=== PATIENT | male | born 1940 | race Caucasian/White ===

== ENCOUNTER 2017-08-09 10:25 | Inpatient (IN) | payer MEDICARE ==
--- NOTE | 2017-08-09 11:09 | RAD ---
PORTABLE CHEST: History: Chest pain. Comparison: 12-12-16 FINDINGS: Lung show increased interstitial markings which appear stable. No infiltrate or vascular congestion. Heart size is upper normal and stable. IMPRESSION: Chronic appearing interstitial prominence again noted without evidence of acute change. POS: [facility]
[2017-08-09 11:28] LABS: ALT (SGPT) 23 U/L (8-55); AST (SGOT) 20 U/L (5-34); Alkaline Phosphatase 110 U/L (40-150); Anion Gap 11 mmol/L (10-20); BUN (Urea Nitrogen) 20 mg/dL (8.4-25.7); Bilirubin, Total 0.7 mg/dL (0.2-1.2); CK (CPK) 53 U/L (30-200); Calc. Creatinine Clearance 0 mL/min (70-130); Carbon Dioxide 25 mmol/L (23-31); Chloride 108 mmol/L (98-107); Estimated GFR-MDRD 51; Globulin 2.7 g/dL (2.4-3.5); Protein, Total 6.4 g/dL (5.8-8.1)
[2017-08-09 11:32] LABS: Troponin I 0.015 ng/mL (< 0.028)
[2017-08-09 11:49] LABS: #Eosinphils 0.1 thou/uL (0.0-0.7); #Lymphocytes 1.1 thou/uL (1.20-3.40); #Monocytes 0.3 thou/uL (0.11-0.59); #Neutrophils 4.2 thou/uL (1.40-6.50); %Basophils 0.6 % (0.0-1.0); %Eosinophils 1.6 % (0.0-10.0); %Lymphocytes 18.3 % (21.0-51.0); %Monocytes 5.9 % (0.0-10.0); Hematocrit 33.7 % (42.0-52.0); Macrocytosis MODERATE=16-30 cells (100X) (0-5/hpf); Mean Platelet Volume 7.9 fL (7.4-10.4); Polychromasia SLIGHT = 2-3 cells (100X) (0-2/hpf); White Blood Cell (WBC) Count 5.7 thou/uL (4.8-10.8)
[2017-08-09 14:30] LABS: Troponin I 0.047 ng/mL (< 0.028)
--- NOTE | 2017-08-09 15:21 | HP ---
PRIMARY CARE PHYSICIAN: Andriy Robles M.D. REASON FOR ADMISSION: Chest pain and palpitations. HISTORY OF PRESENT ILLNESS: A 76-year-old male with a history of dyslipidemia, anxiety, as well as h istory of hemolytic anemia who presented to emergency room for evaluation and dizziness. For last 4 days, he had two similar episodes of falling. The patient reports that he was resting and all of joel denly he was feeling palpitations, dizziness, shortness of breath, and substernal chest pressure-like sensation with nausea. This morning, episode was around 9:30 a.m. and it was more intense. Patient 's was trying to drive him to the ER, but patient told her that he is going to pass out and that is why she was concerned about it and decided to call paramedics. During that period, patient's wif e checked vitals at home and patient's pulse was 190 and blood pressure was 70 systolic. The patient appeared ashen nicholson color as well as cold. Patient was also having difficulty maintaining conscious ness. When paramedics came to his house, at that time, patient's blood pressure was still low and he was tachycardic. When he arrived to our emergency room, at that time blood pressure improved. As p er paramedics, he had episode of SVT. In the emergency room, he had only sinus tachycardia and low b lood pressure. Patient reports that recently he was having nasal congestion, cough, and he was takin g Mucinex, but he denies any pseudoephedrine. He denies any more caffeinated products. He denies an y complete loss of consciousness. He denies any focal motor or sensory symptoms. When I saw this patient in the emergency room, he was completely comfortable and completely asymptoma tic. At this point, we are admitting this patient in the hospital for further monitoring. REVIEW OF SYSTEMS: The following complete review of systems was negative, unless otherwise mentioned in the HPI or below: Constitutional: Weight loss or gain, ability to conduct usual activities. Skin: Rash, itching. Eyes: Double vision, pain. ENT/Mouth: Nose bleeding, neck stiffness, pain, tenderness. Cardiovascular: Palpitations, dyspnea on exertion, orthopnea. Respiratory: Shortness of breath, wheezing, cough, hemoptysis, fever or night sweats. Gastrointestinal: Poor appetite, abdominal pain, heartburn, nausea, vomiting, constipation, or diarr hea. Genitourinary: Urgency, frequency, dysuria, nocturia. Musculoskeletal: Pain, swelling. Neurologic/Psychiatric: Anxiety, depression. Allergy/Immunologic: Skin rash, bleeding tendency. Please see my HPI for pertinent positives and negatives. All other review of systems reviewed and ne gative except as mentioned in the HPI. ALLERGIES: No known drug allergies. CURRENT HOME MEDICATIONS: Folic acid 1 mg p.o. daily, Lyrica 100 mg daily, Lipitor 40 mg p.o. at bed time, Zetia 10 mg every other day, Wellbutrin-SR 150 mg daily, aspirin 325 mg p.o. daily, hydroxyurea 1000 mg on Saturday, Saturday, Saturday, and 500 mg on rest of the days, Colace 100 mg twice daily. PAST MEDICAL HISTORY: History of aortic aneurysm in 1996, history of myocardial infarction in 1993, history of congestive heart failure, COPD, history of hypotension, hemolytic anemia, history of colon obstruction and required surgery, history of serratia bacteremia, dyslipidemia, history of Raynaud's phenomena, history of chronic diastolic heart failure. PAST SURGICAL HISTORY: Right ankle surgery. The patient required plastic surgery for wound over rig ht foot, colon repair, left knee replacement, right foot surgery, AAA repair in 1996. PAST PSYCHIATRIC HISTORY: Anxiety and depression. SOCIAL HISTORY: Patient is and lives at home with his . He has a remote history of smok ing. At this point, he quit smoking less than 10 years ago. He denies any alcohol or illicit drug a buse. FAMILY HISTORY: No strong family history of cancer, but both parents had coronary artery disease and stroke. EMERGENCY ROOM COURSE: Patient is given IV fluid. PHYSICAL EXAMINATION: VITAL SIGNS: On arrival, blood pressure 101/76, pulse 115, respiratory rate 18, temperature 98.4, sa turation 99%, weight 85.3 kilograms. GENERAL: Patient is currently alert, awake, no obvious acute distress, slightly tachycardic. HEAD: Normocephalic, atraumatic. EYES: Pupils round, reactive to light. Extraocular muscles intact. ENT: Oropharynx within normal limits. Moist mucous membranes. No oral lesions. No pharyngeal eryt rebekah, no exudate. NECK: Supple, no JVD, no thyromegaly, no carotid bruits. LUNGS: Clear to auscultation without any rhonchi or rales. No wheezing. CARDIAC: S1, S2 regular, tachycardia, no murmur, no gallop, no rub. ABDOMEN: Soft, bowel sounds present, nontender, nondistended. No organomegaly, no mass, no suprapub ic tenderness. BACK: Examination unremarkable, no CVA tenderness. EXTREMITIES: Upper extremity passive movements of all joints are normal. Lower extremities: No kvng ma. Good peripheral pulsation. SKIN: No skin rash. HEMATOLOGICAL SYSTEM: No lymphadenopathy. PSYCHIATRIC: Normal affect. IMAGING AND SIGNIFICANT LABORATORY DATA: 1. EKG based on my review, sinus tachycardia, nonspecific ST-T changes in inferior leads. 2. Chest x-ray based on my review, chronic interstitial changes without evidence of acute process. 3. CBC: WBC 5.7, hemoglobin 11.5, MCV 125, platelets 392. 4. BMP: Sodium 140, potassium 4.3, chloride 108, carbon dioxide 25, anion gap 11, BUN 20, creatinin e 1.35, glucose 117, calcium 10.0. 5. LFT: AST 20, ALT 23, alkaline phosphatase 110, albumin 3.7, CK 53, CK-MB 1.8, troponin I 0.015. ASSESSMENT AND PLAN/IMPRESSION: 1. Acute palpitation, dizziness, hypotension and tachycardia. 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 Landers, so will check CT angio, he has little bit elevated creatinine and that is why I will give h im IV fluid as well to prevent any nephrotoxicity. The patient's family member requested Cardiology evaluation and Dr. Moss is his pipe fitter and he is salesperson furs over the weekend, so we will consul t him as well. We will obtain echocardiography and rule out acute coronary syndrome. Stress test de cision will defer to Cardiology as this patient had recently stress test done and that is why I will wait for Cardiology to make that decision. His history also sounds like supraventricular tachycardia . In that case, the patient may need Holter monitoring and he may need electrophysiologic evaluation . We will check TSH as well. 2. Acute kidney injury. His creatinine is slightly elevated from previous and that is why we will g carri him IV fluid. 3. Microcytic anemia, likely related with hydroxyurea. We will continue folic acid 1 mg p.o. daily. 4. Hemolytic anemia and essential thrombocytopenia. We will continue hydroxyurea as per home dosage . 5. Dyslipidemia. Check lipid profile tomorrow and continue Zetia and Lipitor as per home dosage. 6. Anxiety and depression. We will continue Wellbutrin-SR 150 mg p.o. daily. 7. Peripheral neuropathy. We will continue Lyrica 100 mg p.o. daily. 8. Deep venous thrombosis prophylaxis not needed because we are expecting discharge in 24 hours. 9. Gastrointestinal prophylaxis, Pepcid 20 mg p.o. b.i.d. 10. Code status: The patient is FULL CODE. The patient's is surrogate decision maker. Disposition plan based on clinical course. We are expecting patient's stay in hospital [address] an of care discussed with the patient and at bedside in the emergency room. When I was garfield haji, I looked that his second troponin came back positive and in this way this patient may have demand ischemia from severe palpitations.
[2017-08-09] MEDS ORDERED: Sodium Chloride 0.65% Nasal 44 ML BOT EA NARE PRN (16:03)
[2017-08-09] MEDS ORDERED: Ondansetron ODT 4 MG TAB PO PRN (16:03)
[2017-08-09] MEDS ORDERED: Ondansetron HCl/PF 4 MG/2 ML Vial IVP PRN (16:03)
[2017-08-09] MEDS ORDERED: hydrALAZINE 20 MG/ML VIAL SLOW IVP PRN (16:03)
[2017-08-09] MEDS ORDERED: Milk Of Magnesia 30 ML UDCUP PO PRN (16:03)
[2017-08-09] MEDS ORDERED: Artificial Tears 18 DROP/0.9 ML EA EYE PRN (16:03)
[2017-08-09] MEDS ORDERED: Zolpidem Tartrate 5 MG TAB PO PRN (16:03)
[2017-08-09] MEDS ORDERED: Nitroglycerin 0.4 MG TAB (25 Tab Bottle) SL PRN (16:03)
[2017-08-09] MEDS ORDERED: Mag-Al 1200 mg/1200 mg/30 ML UDCUP PO PRN (16:03)
[2017-08-09] MEDS ORDERED: Senokot 8.6 MG TAB PO PRN (16:03)
[2017-08-09] MEDS ORDERED: Eucerin (Mineral Oil/Petrolatum,White) 30 gm Jar TOP PRN (16:03)
[2017-08-09] MEDS ORDERED: Loperamide HCl 2 MG CAP PO PRN (16:03)
[2017-08-09] MEDS ORDERED: Loratadine 10 MG TAB PO PRN (16:03)
[2017-08-09] MEDS ORDERED: Diabetic Tussin 200 MG/10 ML UDCUP PO PRN (16:03)
[2017-08-09 16:45] VITALS: BMI 26.9
[2017-08-09] MEDS ORDERED: Ezetimibe 10 MG TAB PO SCH (16:45)
[2017-08-09] MEDS: Sodium Chloride 0.9% 1,000 ML IV SCH (17:14)
[2017-08-09 17:35] LABS: Troponin I 0.064 ng/mL (< 0.028)
[2017-08-09] MEDS: Mometasone/Formoterol 120 PUFF INHALER INH SCH (18:19)
[2017-08-09] MEDS: Atorvastatin Calcium 40 MG TAB PO SCH (20:03)
[2017-08-09] MEDS: Famotidine 20 MG TAB PO SCH (20:03)
[2017-08-09] MEDS ORDERED: Pregabalin 50 MG CAP PO SCH (21:00)
[2017-08-09] MEDS ORDERED: Ibuprofen 200 MG TAB PO SCH (21:00)
[2017-08-10] MEDS: Sodium Chloride 0.9% 1,000 ML IV SCH (01:26)
[2017-08-10 04:45] LABS: #Eosinphils 0.2 thou/uL (0.0-0.7); #Lymphocytes 1.4 thou/uL (1.20-3.40); #Monocytes 0.6 thou/uL (0.11-0.59); #Neutrophils 3.2 thou/uL (1.40-6.50); %Basophils 0.4 % (0.0-1.0); %Eosinophils 3.2 % (0.0-10.0); %Lymphocytes 25.5 % (21.0-51.0); %Monocytes 10.8 % (0.0-10.0); Hematocrit 30.6 % (42.0-52.0); Mean Platelet Volume 7.4 fL (7.4-10.4); Red Blood Cell (RBC) Count 2.44 mill/uL (4.70-6.10); White Blood Cell (WBC) Count 5.4 thou/uL (4.8-10.8)
[2017-08-10 04:53] LABS: Anion Gap 9 mmol/L (10-20); BUN (Urea Nitrogen) 17 mg/dL (8.4-25.7); Calc. Creatinine Clearance 57 mL/min (70-130); Calcium 9.4 mg/dL (7.8-10.44); Carbon Dioxide 23 mmol/L (23-31); Chloride 113 mmol/L (98-107); Cholesterol 97 mg/dl (< 200 Desired); Estimated GFR-MDRD 54; LDL Cholesterol, Calculated 48 mg/dL
[2017-08-10 04:58] LABS: Troponin I 0.035 ng/mL (< 0.028)
[2017-08-10] MEDS: Mometasone/Formoterol 120 PUFF INHALER INH SCH ×2 (06:57→19:38)
--- NOTE | 2017-08-10 08:30 | CON ---
DATE OF CONSULTATION: 08/09/2017 HISTORY OF PRESENT ILLNESS: Fede Carrasquillo is a 76-year-old white male that I have been following since 10/14/1993. On the day prior to his initial evaluation, he developed tightness in his epigastric area after eating lunch, which he thought was indigestion, this resolved and is pain free until 2 a.m. the next morning, when he got up to go to the bathroom, developed same type of discomfort; however, it was more intense. He also became extremely lightheaded and felt that if he would fall. He did not remember falling, however, his said that she heard a thud when he did fall. He eventually got back to bed and the next morning, went to see Dr. Karan Morales. He did have some shortness of breath with chest discomfort, which continued to be present when he saw Dr. Morales. He was found to have small Q-waves in II, III, and F, as well as inverted T-wave in lead III. It was felt that he probably had an inferior myocardial infarction. He was admitted, cardiac enzymes revealed a peak CK of 1256 and an MB of 116. When he was admitted, he was initially hypotensive and bradycardiac and was placed on dopamine and normal saline. His blood pressure increased to the 90-100 range on the day of admission. He also developed pericardial pain with pain only with deep inspiration, which was controlled with Indocin. He underwent cardiac catheterization, which revealed inferobasal akinesis. There is a 40 to 50% proximal LAD lesion, followed by another 50% proximal lesion, 70% stenosis of a large branch of the first obtuse marginal. There was total occlusion of the mid right coronary artery, which filled retrograde from the left. After discussion with the patient's , it was felt best to open the right coronary artery. Later that same day, he underwent PTCA of the mid right coronary artery lesion with the final lesion being 20%. There was an area of dissection. At the time of discharge, he was walking 1000 feet. On , he underwent treadmill testing, exercised for 9 minutes without chest pain or ST segment changes. Again on 06/13/1995, he had a negative treadmill. He was again admitted on 09/13/1996. At that time, he had been noting a pulsation in his abdomen as well as some in his back. He is walking 2 miles per day, but then stopped. Abdominal ultrasound revealed abdominal aortic aneurysm of 5.4 cm. He has again referred for cardiac evaluation prior to resection of the AAA. He underwent repeat catheterization. This revealed mild inferior and moderate inferobasal hypokinesis with ejection fraction of 45%. There was an abdominal aortic aneurysm, which was below the renal arteries and extend into the bifurcation. Coronary arteriography revealed 30% proximal LAD lesion, 70-80% proximal circumflex, 70% branch of the first obtuse marginal. There was a 50% mid RCA lesion. There was a 20% mid RCA lesion, which was the site of PTCA in 09/1993. There was a question regarding the circumflex and the obtuse marginal lesion regarding possible PTCA prior to surgery. He underwent thallium treadmill testing and was found to have a partially reversible ischemia in the inferior wall, which was in the distribution of the right coronary artery and previous infarction. Posterior wall distribution, circumflex did not have any perfusion defects on thallium. Therefore, it was felt that the significance of the circumflex lesion was not great and no further intervention was warranted at that time. Also, the circumflex anatomy appeared to be a poor vessel for intervention with PTCA. He then underwent abdominal aortic aneurysm repair. He was admitted again on 07/14/[address] Camarena in my absence. Again, he had an episode of epigastric discomfort associated with dizziness, diaphoresis. He was admitted. Myocardial infarction was ruled out. With previous catheterization 8 months prior to that, it was felt that no further evaluation was warranted. Mr. Carrasquillo continued to be followed in the office without any significant cardiac symptoms. In 08/2011, he had a Lexiscan Cardiolite, which revealed a moderate scar of the inferior wall with no evidence of ischemia. There was a fixed inferobasal defect on prone scan as well. He also has been having problems with Raynaud's phenomenon and a trial of amlodipine was started; however, that did not seem to help his symptoms. In 05/2016, he was noted to be anemic, was evaluated by Dr. Landers and eventually found to have hemolytic anemia. He was placed on prednisone. He also started having problems with right lower extremity cellulitis, was placed on antibiotics, but this continued to worsen and ultimately he had a skin graft placed. He did have a troponin I of 0.318 when he was admitted with sepsis from the cellulitis. We discussed possible catheterization at that time. He declined catheterization, but did undergo an outpatient Lexiscan Cardiolite test on 12/06/2015. This revealed proximal mid inferior wall fixed defect with same finding on prone scan. This was felt to be consistent with his previous infarction. In 08/2016, he presented with a sigmoid stricture, underwent laparoscopic sigmoid colectomy with placement of a colostomy. He ultimately underwent takedown colostomy in 11/2016. Also from his hemolytic anemia, he developed thrombocytosis and was treated with hydroxyurea. Overall, he has been doing well until 08/06/2017. He stated that he had been standing a long time cooking fudge for [email or web address] and had onset of feeling of extreme weakness and lightheadedness as well as left chest pressure. He denied any palpitations. He took his blood pressure and it was 90/60 and heart rate was fast, but he does not remember specific number. Ultimately, this episode resolved after 30 minutes. He then today had been standing a long time and again had similar symptoms of left chest pressure associated with extreme weakness. He took his blood pressure and it was 77/57 with a pulse of 190. His is going to bring him to the emergency room; however, he said he was too weak to walk and paramedics were called. Apparently, when they arrived, he was in a supraventricular tachycardia, although there are no rhythm strips to confirm this. Before they could give any medication, he apparently spontaneously converted to sinus rhythm. Again, with this episode, he denies any palpitations. PAST MEDICAL HISTORY: Hemolytic anemia then developing thrombocytosis, hypertension, hypercholesterolemia, coronary artery disease, history of myocardial infarction, history of Raynaud's phenomenon, cellulitis of the right leg requiring skin grafts. OPERATIONS: Abdominal aortic aneurysm repair in 1996, right ankle with skin grafts, sigmoid colectomy with placement of colostomy and ultimate reversal of the colostomy, left knee replacement. MEDICATIONS AT HOME: Include aspirin 325 daily, Lipitor 40 at bedtime, Wellbutrin 150 b.i.d., Colace 100 b.i.d., Zetia 10 mg every other day, Folvite 1 mg daily, hydroxyurea 500 mg b.i.d., ibuprofen/diphenhydramine 2 tablets at bedtime, Lyrica 100 mg at bedtime, Dulera inhaler 2 puffs daily. ALLERGIES: None. SOCIAL HISTORY: He smoked a pack per day, but stopped in 05/2016. He does not drink. He is a retired kennel manager dog track. FAMILY HISTORY: Mother had 2 myocardial infarctions and 2 PTCAs. Father of abdominal aortic aneurysm rupture at the age of 49. REVIEW OF SYSTEMS: Twelve point review of systems otherwise unremarkable. PHYSICAL EXAMINATION: VITAL SIGNS: Blood pressure 122/66, pulse of 76. HEENT: PERRL. NECK: Supple. LUNGS: Chest is clear. CARDIAC: S1 and S2 are normal without any S3, S4 or murmurs. Carotid upstrokes are normal without bruits. ABDOMEN: Normal bowel sounds, without tenderness, organomegaly. EXTREMITIES: Revealed no clubbing, cyanosis or edema. NEUROLOGIC: Grossly intact. SKIN: Warm and dry. LABORATORY DATA: EKG revealed sinus tachycardia with a rate of 108, inferior infarction. Hemoglobin 11.5, hematocrit 33.7, white count 5700, platelets 392, 000. Sodium 140, potassium 4.3, chloride 108, carbon dioxide 25, BUN 20, creatinine 1.35. BNP 141.5, troponin I 0.064, CK-MB is normal. IMPRESSION: 1. Two recent episodes of tachycardia associated with hypotension, lightheadedness, and chest pressure. Collection Teller said that he has supraventricular tachycardia; however, there is no documentation. 2. Fixed proximal and mid inferior wall defect without ischemia on nuclear scan in 07/2016. 3. History of inferior myocardial infarction in 09/1993 with a peak CK of 1256 , MB of 116. Last catheterization in 08/1996 revealed continued good results from the previous PTCA in the right coronary artery. He also had a 70 to 80% proximal circumflex stenosis; however, on thallium at the time, this area apparently did not have any ischemia. He then underwent abdominal aortic aneurysm repair without incident. 4. Abdominal aortic aneurysm repair. 5. Former smoker, stopped in 05/2016. 6. Chronic obstructive pulmonary disease. 7. Hypercholesterolemia. 8. Hemolytic anemia with thrombocytosis. 9. Raynaud's phenomenon. 10. Status post sigmoid colectomy with colostomy and ultimate reversal of the colostomy. PLAN: Mr. Carrasquillo will continue to be monitored. Echocardiogram will be performed to reassess left ventricular function. Consideration can be given to electrophysiology testing to try to induce his tachycardia and consideration of ablation if that is appropriate. MTDD
[2017-08-10] MEDS: Folic Acid 1 MG TAB PO SCH (09:01)
[2017-08-10] MEDS: Bupropion 150 MG XL TAB PO SCH (09:01)
[2017-08-10] MEDS: Famotidine 20 MG TAB PO SCH ×2 (09:01→21:22)
[2017-08-10] MEDS: Aspirin 325 MG TAB PO SCH (09:01)
[2017-08-10] MEDS: Pregabalin 50 MG CAP PO SCH ×2 (09:03→21:23)
--- NOTE | 2017-08-10 09:03 | CT ---
CT PULMONARY ANGIO CHEST WITH IV CONTRAST: TECHNIQUE: Multiple axial tomograms obtained through the chest with pulmonary angio protocol with multiplanar re construction and 3D post processing. HISTORY: Hypotension. Palpitations. Tachycardia. FINDINGS: The pulmonary arteries are well opacified. There is no evidence of pulmonary embolus. Thee are chronic lung changes seen. There is peripheral interstitial thickening and early honeycombi ng in the lung periphery. No evidence of inflammatory infiltrate. No evidence of effusion. mediast inum unremarkable. Images through the upper abdomen unremarkable. IMPRESSION: 1. No evidence of pulmonary embolus. 2. Chronic lung changes without evidence of acute inflammatory infiltrate. POS: [facility]
--- NOTE | 2017-08-10 10:50 | PDOC.PN ---
- Subjective Encounter Start Date: 08/10/17 Encounter Start Time: 07:30 -: old records requested/rev Patient seen and examined. No new complaints. No overnight events denies chest pain, no palpitation today, no fever - Objective MAR Reviewed: Yes Result Diagrams: 08/10/17 04:26 08/10/17 04:26 Radiology Reviewed by me: Yes (CTA chest) EKG Reviewed by me: Yes (NSR) Phys Exam - Physical Examination Constitutional: NAD HEENT: PERRLA, moist MMs, sclera anicteric Neck: no JVD, supple Respiratory: no wheezing, no rales, no rhonchi Cardiovascular: RRR, no significant murmur, no rub Gastrointestinal: soft, non-tender, no distention, positive bowel sounds Musculoskeletal: no edema, pulses present Neurological: non-focal, normal sensation, moves all 4 limbs Psychiatric: normal affect, A&O x 3 Skin: no rash, normal turgor Dx/Plan (1) BREONNA (acute kidney injury) Code(s): N17.9 - ACUTE KIDNEY FAILURE, UNSPECIFIED Status: Resolved (2) Elevated troponin Code(s): R74.8 - ABNORMAL LEVELS OF OTHER SERUM ENZYMES Status: Acute Comment: due to demand ischemia (3) Palpitation Code(s): R00.2 - PALPITATIONS Status: Acute Comment: with tachycardia, hypotension and dizziness suspected for SVT (4) Anxiety and depression Code(s): F41.8 - OTHER SPECIFIED ANXIETY DISORDERS Status: Chronic (5) COPD (chronic obstructive pulmonary disease) Status: Chronic (6) Diastolic CHF Code(s): I50.30 - UNSPECIFIED DIASTOLIC (CONGESTIVE) HEART FAILURE Status: Chronic Qualifiers: Congestive heart failure chronicity: chronic Qualified Code(s): I50.32 - Chronic diastolic (congestive) heart failure (7) Dyslipidemia Code(s): E78.5 - HYPERLIPIDEMIA, UNSPECIFIED Status: Chronic (8) Hemolytic anemia Code(s): D58.9 - HEREDITARY HEMOLYTIC ANEMIA, UNSPECIFIED Status: Chronic Qualifiers: (9) History of AAA (abdominal aortic aneurysm) repair Code(s): Z98.890 - OTHER SPECIFIED POSTPROCEDURAL STATES Status: Chronic (10) Hx of coronary artery disease Code(s): Z86.79 - PERSONAL HISTORY OF OTHER DISEASES OF THE CIRCULATORY SYSTEM Status: Chronic (11) Hypotension Status: Chronic Qualifiers: (12) Peripheral neuropathy Code(s): G62.9 - POLYNEUROPATHY, UNSPECIFIED Status: Chronic (13) Macrocytic anemia Code(s): D53.9 - NUTRITIONAL ANEMIA, UNSPECIFIED Status: Chronic - Plan cont current plan of care * CTA chest done and ruled out PE * echo pending * pt will need EP study and will need tele monitoring * will change to inpt status as he will need more than 2 midnight in hospital * medication reviewed as below * symptomatic treatment * continue selected home medication. Review of Systems - Review of Systems Eyes: negative: Pain, Vision Change, Conjunctivae Inflammation, Eyelid Inflammation, Redness, Other ENT: negative: Ear Pain, Ear Discharge, Nose Pain, Nose Discharge, Nose Congestion, Mouth Pain, Mouth Swelling, Throat Pain, Throat Swelling, Other Respiratory: negative: Cough, Dry, Shortness of Breath, Hemoptysis, SOB with Excertion, Pleuritic Pain, Sputum, Wheezing Cardiovascular: negative: Chest Pain, Palpitations, Orthopnea, Paroxysmal Noc. Dyspnea, Edema, Light Headedness, Other Gastrointestinal: negative: Nausea, Vomiting, Abdominal Pain, Diarrhea, Constipation, Melena, Hematochezia, Other Genitourinary: negative: Dysuria, Frequency, Incontinence, Hematuria, Retention , Other Musculoskeletal: negative: Neck Pain, Shoulder Pain, Arm Pain, Back Pain, Hand Pain, Leg Pain, Foot Pain, Other Skin: negative: Rash, Lesions, Deacon, Bruising, Other - Medications/Allergies Allergies/Adverse Reactions: Allergies Allergy/AdvReac Type Severity Reaction Status Date / Time No Known Drug Allergies Allergy Verified 12/17/16 21:35 Medications: Current Medications Acetaminophen (Tylenol) 650 mg PO Q4H PRN PRN Reason: Headache/Fever or Pain Hydrocodone Bitart/Acetaminophen ([place] 5/325) 1 tab PO Q4H PRN PRN Reason: Moderate Pain (4-6) Al Hydroxide/Mg Hydroxide (Maalox) 30 ml PO Q6H PRN PRN Reason: Heartburn or Indigestion Albuterol/Ipratropium (Duoneb) 3 ml NEB [id number] PRN PRN Reason: SOB &/or Wheezing Artificial Tears (Tears Naturale) 0 drop EA EYE PRN PRN PRN Reason: Dry Eyes Aspirin (Aspirin) 325 mg PO DAILY [facility] Last Admin: 08/10/17 09:01 Dose: 325 mg Atorvastatin Calcium (Lipitor) 40 mg PO HS [facility] Last Admin: 08/09/17 20:03 Dose: 40 mg Bupropion HCl (Wellbutrin Xl) 150 mg PO DAILY [facility] Last Admin: 08/10/17 09:01 Dose: 150 mg Docusate Sodium (Colace) 100 mg PO BID [facility] Ezetimibe (Zetia) 10 mg PO Q2D@0900 [facility] Famotidine (Pepcid) 20 mg PO BID [facility] Last Admin: 08/10/17 09:01 Dose: 20 mg Folic Acid (Folvite) 1 mg PO DAILY [facility] Last Admin: 08/10/17 09:01 Dose: 1 mg Guaifenesin (Robitussin Sf) 200 mg PO Q4H PRN PRN Reason: Cough Hydralazine HCl (Apresoline) 10 mg SLOW IVP Q4H PRN PRN Reason: Systolic BP > 180 Hydroxyurea (Hydrea) 1,000 mg PO [facility] Hydroxyurea (Hydrea) 500 mg PO [facility] Last Admin: 08/10/17 09:08 Dose: 500 mg Loperamide HCl (Imodium) 2 mg PO PRN PRN PRN Reason: Diarrhea/Loose Stools Loratadine (Claritin) 10 mg PO DAILYPRN PRN PRN Reason: Sinus Symptoms Magnesium Hydroxide (Milk Of Magnesium) 30 ml PO DAILYPRN PRN PRN Reason: Constipation Mineral Oil/White Petrolatum (Eucerin Cream) 0 gm TOP BIDPRN PRN PRN Reason: Dry Skin Mometasone Furoate/Formoterol Fumar (Dulera 200 Mcg/5 Mcg Inhaler) 1 puff INH BID-RT [facility] Last Admin: 08/10/17 06:57 Dose: 1 puff Nitroglycerin (Nitrostat) 0.4 mg SL Q5MIN PRN PRN Reason: Chest Pain Ondansetron HCl (Zofran Odt) 4 mg PO Q6H PRN PRN Reason: Nausea/Vomiting Ondansetron HCl (Zofran) 4 mg IVP Q6H PRN PRN Reason: Nausea/Vomiting Pregabalin (Lyrica) 100 mg PO DAILY [facility] Last Admin: 08/10/17 09:03 Dose: Not Given Pregabalin (Lyrica) 100 mg PO HS [facility] Senna (Senokot) 2 tab PO HSPRN PRN PRN Reason: Constipation Sodium Chloride ([place] Nasal [place] 0.65%) 0 ml EA NARE QIDPRN PRN PRN Reason: Nasal Congestion Zolpidem Tartrate (Ambien) 5 mg PO HSPRN PRN PRN Reason: Insomnia
[2017-08-10] MEDS ORDERED: Hydroxyurea 500 MG CAP PO SCH (14:23)
[2017-08-10] MEDS ORDERED: ISOVUE-370 76%-LOCM 1 ML ONE (17:38)
[2017-08-10] MEDS ORDERED: Non-Formulary Item 1 EACH (Pregabalin [Lyrica] 100 MG) PO SCH (21:00)
[2017-08-10] MEDS: Atorvastatin Calcium 40 MG TAB PO SCH (21:22)
[2017-08-10] MEDS: Docusate 100 MG CAP PO SCH (21:22)
[2017-08-10] MEDS: Acetaminophen 325 MG TAB PO PRN (21:25)
[2017-08-11] MEDS: Mometasone/Formoterol 120 PUFF INHALER INH SCH ×2 (07:42→20:01)
[2017-08-11] MEDS: Aspirin 325 MG TAB PO SCH (08:54)
[2017-08-11] MEDS: Bupropion 150 MG XL TAB PO SCH (08:54)
[2017-08-11] MEDS: Famotidine 20 MG TAB PO SCH ×2 (08:54→20:39)
[2017-08-11] MEDS: Docusate 100 MG CAP PO SCH ×2 (08:54→20:39)
[2017-08-11] MEDS: Folic Acid 1 MG TAB PO SCH (08:54)
[2017-08-11] MEDS: Ezetimibe 10 MG TAB PO SCH (08:54)
[2017-08-11] MEDS: Pregabalin 50 MG CAP PO SCH ×2 (08:55→20:40)
--- NOTE | 2017-08-11 10:25 | PDOC.PN ---
- Subjective Encounter Start Date: 08/11/17 Encounter Start Time: 08:00 Patient seen and examined. No new complaints. No overnight events - Objective MAR Reviewed: Yes Vital Signs & Weight: Vital Signs (12 hours) Temp Pulse Resp BP Pulse Ox 08/11/17 08:00 98 F 78 16 08/11/17 07:05 98 F 78 16 123/63 08/11/17 04:08 94 L 08/11/17 04:00 97.5 F L 68 18 135/78 94 L Weight Weight 189 lb 11.2 oz I&O: 08/10/17 08/11/17 08/12/17 06:59 06:59 06:59 Intake Total 960 Output Total 1950 Balance -990 Result Diagrams: 08/10/17 04:26 08/10/17 04:26 EKG Reviewed by me: Yes (nsr) Phys Exam - Physical Examination Constitutional: NAD HEENT: PERRLA, moist MMs, sclera anicteric Neck: no nodes, no JVD, supple Respiratory: no wheezing, no rales, no rhonchi Cardiovascular: RRR, no significant murmur, no rub Gastrointestinal: soft, non-tender, no distention, positive bowel sounds Musculoskeletal: no edema, pulses present Neurological: non-focal, normal sensation, moves all 4 limbs Lymphatic: no nodes Psychiatric: normal affect, A&O x 3 Skin: no rash, normal turgor Dx/Plan (1) BREONNA (acute kidney injury) Code(s): N17.9 - ACUTE KIDNEY FAILURE, UNSPECIFIED Status: Resolved (2) Elevated troponin Code(s): R74.8 - ABNORMAL LEVELS OF OTHER SERUM ENZYMES Status: Acute Comment: due to demand ischemia (3) Palpitation Code(s): R00.2 - PALPITATIONS Status: Acute Comment: with tachycardia, hypotension and dizziness suspected for SVT (4) Anxiety and depression Code(s): F41.8 - OTHER SPECIFIED ANXIETY DISORDERS Status: Chronic (5) COPD (chronic obstructive pulmonary disease) Status: Chronic (6) Diastolic CHF Code(s): I50.30 - UNSPECIFIED DIASTOLIC (CONGESTIVE) HEART FAILURE Status: Chronic Qualifiers: Congestive heart failure chronicity: chronic Qualified Code(s): I50.32 - Chronic diastolic (congestive) heart failure (7) Dyslipidemia Code(s): E78.5 - HYPERLIPIDEMIA, UNSPECIFIED Status: Chronic (8) Hemolytic anemia Code(s): D58.9 - HEREDITARY HEMOLYTIC ANEMIA, UNSPECIFIED Status: Chronic Qualifiers: (9) History of AAA (abdominal aortic aneurysm) repair Code(s): Z98.890 - OTHER SPECIFIED POSTPROCEDURAL STATES Status: Chronic (10) Hx of coronary artery disease Code(s): Z86.79 - PERSONAL HISTORY OF OTHER DISEASES OF THE CIRCULATORY SYSTEM Status: Chronic (11) Hypotension Status: Chronic Qualifiers: (12) Peripheral neuropathy Code(s): G62.9 - POLYNEUROPATHY, UNSPECIFIED Status: Chronic (13) Macrocytic anemia Code(s): D53.9 - NUTRITIONAL ANEMIA, UNSPECIFIED Status: Chronic - Plan cont current plan of care * tomorrow EP study and or cardiac cath * medication reviewed as below * symptomatic treatment * stable medically with current treatment. Review of Systems - Review of Systems ENT: negative: Ear Pain, Ear Discharge, Nose Pain, Nose Discharge, Nose Congestion, Mouth Pain, Mouth Swelling, Throat Pain, Throat Swelling, Other Respiratory: negative: Cough, Dry, Shortness of Breath, Hemoptysis, SOB with Excertion, Pleuritic Pain, Sputum, Wheezing Cardiovascular: negative: Chest Pain, Palpitations, Orthopnea, Paroxysmal Noc. Dyspnea, Edema, Light Headedness, Other Gastrointestinal: negative: Nausea, Vomiting, Abdominal Pain, Diarrhea, Constipation, Melena, Hematochezia, Other Genitourinary: negative: Dysuria, Frequency, Incontinence, Hematuria, Retention , Other Musculoskeletal: negative: Neck Pain, Shoulder Pain, Arm Pain, Back Pain, Hand Pain, Leg Pain, Foot Pain, Other Skin: negative: Rash, Lesions, Deacon, Bruising, Other - Medications/Allergies Allergies/Adverse Reactions: Allergies Allergy/AdvReac Type Severity Reaction Status Date / Time No Known Drug Allergies Allergy Verified 12/17/16 21:35 Medications: Current Medications Acetaminophen (Tylenol) 650 mg PO Q4H PRN PRN Reason: Headache/Fever or Pain Last Admin: 08/10/17 21:25 Dose: 650 mg Hydrocodone Bitart/Acetaminophen ([place] 5/325) 1 tab PO Q4H PRN PRN Reason: Moderate Pain (4-6) Al Hydroxide/Mg Hydroxide (Maalox) 30 ml PO Q6H PRN PRN Reason: Heartburn or Indigestion Albuterol/Ipratropium (Duoneb) 3 ml NEB [id number] PRN PRN Reason: SOB &/or Wheezing Artificial Tears (Tears Naturale) 0 drop EA EYE PRN PRN PRN Reason: Dry Eyes Aspirin (Aspirin) 325 mg PO DAILY [facility] Last Admin: 08/11/17 08:54 Dose: 325 mg Atorvastatin Calcium (Lipitor) 40 mg PO HS [facility] Last Admin: 08/10/17 21:22 Dose: 40 mg Bupropion HCl (Wellbutrin Xl) 150 mg PO DAILY [facility] Last Admin: 08/11/17 08:54 Dose: 150 mg Docusate Sodium (Colace) 100 mg PO BID [facility] Last Admin: 08/11/17 08:54 Dose: 100 mg Ezetimibe (Zetia) 10 mg PO Q2D@0900 [facility] Last Admin: 08/11/17 08:54 Dose: 10 mg Famotidine (Pepcid) 20 mg PO BID [facility] Last Admin: 08/11/17 08:54 Dose: 20 mg Folic Acid (Folvite) 1 mg PO DAILY [facility] Last Admin: 08/11/17 08:54 Dose: 1 mg Guaifenesin (Robitussin Sf) 200 mg PO Q4H PRN PRN Reason: Cough Hydralazine HCl (Apresoline) 10 mg SLOW IVP Q4H PRN PRN Reason: Systolic BP > 180 Hydroxyurea (Hydrea) 1,000 mg PO [facility] Hydroxyurea (Hydrea) 500 mg PO [facility] Last Admin: 08/10/17 09:08 Dose: 500 mg Loperamide HCl (Imodium) 2 mg PO PRN PRN PRN Reason: Diarrhea/Loose Stools Loratadine (Claritin) 10 mg PO DAILYPRN PRN PRN Reason: Sinus Symptoms Magnesium Hydroxide (Milk Of Magnesium) 30 ml PO DAILYPRN PRN PRN Reason: Constipation Mineral Oil/White Petrolatum (Eucerin Cream) 0 gm TOP BIDPRN PRN PRN Reason: Dry Skin Mometasone Furoate/Formoterol Fumar (Dulera 200 Mcg/5 Mcg Inhaler) 1 puff INH BID-RT [facility] Last Admin: 08/11/17 07:42 Dose: 1 puff Nitroglycerin (Nitrostat) 0.4 mg SL Q5MIN PRN PRN Reason: Chest Pain Ondansetron HCl (Zofran Odt) 4 mg PO Q6H PRN PRN Reason: Nausea/Vomiting Ondansetron HCl (Zofran) 4 mg IVP Q6H PRN PRN Reason: Nausea/Vomiting Pregabalin (Lyrica) 100 mg PO DAILY [facility] Last Admin: 08/11/17 08:55 Dose: Not Given Pregabalin (Lyrica) 100 mg PO [facility] Last Admin: 08/10/17 21:23 Dose: 100 mg Senna (Senokot) 2 tab PO HSPRN PRN PRN Reason: Constipation Sodium Chloride ([place] Nasal [place] 0.65%) 0 ml EA NARE QIDPRN PRN PRN Reason: Nasal Congestion Zolpidem Tartrate (Ambien) 5 mg PO HSPRN PRN PRN Reason: Insomnia
[2017-08-11] MEDS ORDERED: Communication Order-Pharmacy FS SCH (18:45)
[2017-08-11] MEDS: Sodium Chloride 0.9% 1,000 ML IV SCH (20:04)
[2017-08-11] MEDS: Atorvastatin Calcium 40 MG TAB PO SCH (20:39)
[2017-08-11] MEDS: Acetaminophen 325 MG TAB PO PRN (20:44)
[2017-08-12] MEDS: Sodium Chloride 0.9% 1,000 ML IV SCH (06:12)
[2017-08-12] MEDS: Famotidine 20 MG TAB PO SCH ×2 (06:12→20:13)
[2017-08-12] MEDS: Bupropion 150 MG XL TAB PO SCH (06:13)
[2017-08-12] MEDS: Folic Acid 1 MG TAB PO SCH (06:13)
[2017-08-12] MEDS: Aspirin 325 MG TAB PO SCH (06:13)
[2017-08-12] MEDS: Docusate 100 MG CAP PO SCH ×2 (06:14→20:13)
[2017-08-12] MEDS: Pregabalin 50 MG CAP PO SCH ×2 (06:15→20:12)
[2017-08-12] MEDS ORDERED: Hydroxyurea 500 MG CAP PO SCH (09:00)
--- NOTE | 2017-08-12 09:36 | PDOC.PN ---
- Subjective Encounter Start Date: 08/12/17 Encounter Start Time: 07:50 Patient seen and examined. No new complaints. No overnight events - Objective MAR Reviewed: Yes Vital Signs & Weight: Vital Signs (12 hours) Temp Pulse Resp BP Pulse Ox 08/12/17 07:58 97.9 F 68 16 114/58 L 98 08/12/17 04:00 98.4 F 62 16 106/71 94 L 08/12/17 00:00 18 Weight Weight 187 lb I&O: 08/11/17 08/12/17 08/13/17 06:59 06:59 06:59 Intake Total 960 1418 Output Total 1950 1075 Balance -990 343 Result Diagrams: 08/10/17 04:26 08/10/17 04:26 EKG Reviewed by me: Yes (nsr) Phys Exam - Physical Examination Constitutional: NAD HEENT: PERRLA, moist MMs, sclera anicteric Neck: no JVD, supple Respiratory: no wheezing, no rales, no rhonchi Cardiovascular: RRR, no significant murmur, no rub Gastrointestinal: soft, non-tender, no distention, positive bowel sounds Musculoskeletal: no edema, pulses present Neurological: non-focal, normal sensation, moves all 4 limbs Lymphatic: no nodes Psychiatric: normal affect, A&O x 3 Skin: no rash, normal turgor Dx/Plan (1) BREONNA (acute kidney injury) Code(s): N17.9 - ACUTE KIDNEY FAILURE, UNSPECIFIED Status: Resolved (2) Elevated troponin Code(s): R74.8 - ABNORMAL LEVELS OF OTHER SERUM ENZYMES Status: Acute Comment: due to demand ischemia (3) Palpitation Code(s): R00.2 - PALPITATIONS Status: Acute Comment: with tachycardia, hypotension and dizziness suspected for SVT (4) Anxiety and depression Code(s): F41.8 - OTHER SPECIFIED ANXIETY DISORDERS Status: Chronic (5) COPD (chronic obstructive pulmonary disease) Status: Chronic (6) Diastolic CHF Code(s): I50.30 - UNSPECIFIED DIASTOLIC (CONGESTIVE) HEART FAILURE Status: Chronic Qualifiers: Congestive heart failure chronicity: chronic Qualified Code(s): I50.32 - Chronic diastolic (congestive) heart failure (7) Dyslipidemia Code(s): E78.5 - HYPERLIPIDEMIA, UNSPECIFIED Status: Chronic (8) Hemolytic anemia Code(s): D58.9 - HEREDITARY HEMOLYTIC ANEMIA, UNSPECIFIED Status: Chronic Qualifiers: (9) History of AAA (abdominal aortic aneurysm) repair Code(s): Z98.890 - OTHER SPECIFIED POSTPROCEDURAL STATES Status: Chronic (10) Hx of coronary artery disease Code(s): Z86.79 - PERSONAL HISTORY OF OTHER DISEASES OF THE CIRCULATORY SYSTEM Status: Chronic (11) Hypotension Status: Chronic Qualifiers: (12) Peripheral neuropathy Code(s): G62.9 - POLYNEUROPATHY, UNSPECIFIED Status: Chronic (13) Macrocytic anemia Code(s): D53.9 - NUTRITIONAL ANEMIA, UNSPECIFIED Status: Chronic - Plan cont current plan of care, plan discussed w/ family * today cardiac cath * then EP evaluation * medication reviewed as below * symptomatic treatment * discussed with * stable medically. Review of Systems - Review of Systems ENT: negative: Ear Pain, Ear Discharge, Nose Pain, Nose Discharge, Nose Congestion, Mouth Pain, Mouth Swelling, Throat Pain, Throat Swelling, Other Respiratory: negative: Cough, Dry, Shortness of Breath, Hemoptysis, SOB with Excertion, Pleuritic Pain, Sputum, Wheezing Cardiovascular: negative: Chest Pain, Palpitations, Orthopnea, Paroxysmal Noc. Dyspnea, Edema, Light Headedness, Other Gastrointestinal: negative: Nausea, Vomiting, Abdominal Pain, Diarrhea, Constipation, Melena, Hematochezia, Other Genitourinary: negative: Dysuria, Frequency, Incontinence, Hematuria, Retention , Other Musculoskeletal: negative: Neck Pain, Shoulder Pain, Arm Pain, Back Pain, Hand Pain, Leg Pain, Foot Pain, Other Skin: negative: Rash, Lesions, Deacon, Bruising, Other - Medications/Allergies Allergies/Adverse Reactions: Allergies Allergy/AdvReac Type Severity Reaction Status Date / Time No Known Drug Allergies Allergy Verified 12/17/16 21:35 Medications: Current Medications Acetaminophen (Tylenol) 650 mg PO Q4H PRN PRN Reason: Headache/Fever or Pain Last Admin: 08/11/17 20:44 Dose: 650 mg Hydrocodone Bitart/Acetaminophen ([place] 5/325) 1 tab PO Q4H PRN PRN Reason: Moderate Pain (4-6) Al Hydroxide/Mg Hydroxide (Maalox) 30 ml PO Q6H PRN PRN Reason: Heartburn or Indigestion Albuterol/Ipratropium (Duoneb) 3 ml NEB [id number] PRN PRN Reason: SOB &/or Wheezing Artificial Tears (Tears Naturale) 0 drop EA EYE PRN PRN PRN Reason: Dry Eyes Aspirin (Aspirin) 325 mg PO DAILY [facility] Last Admin: 08/12/17 06:13 Dose: 325 mg Atorvastatin Calcium (Lipitor) 40 mg PO HS [facility] Last Admin: 08/11/17 20:39 Dose: 40 mg Bupropion HCl (Wellbutrin Xl) 150 mg PO DAILY [facility] Last Admin: 08/12/17 06:13 Dose: 150 mg Docusate Sodium (Colace) 100 mg PO BID [facility] Last Admin: 08/12/17 06:14 Dose: Not Given Ezetimibe (Zetia) 10 mg PO Q2D@0900 [facility] Last Admin: 08/11/17 08:54 Dose: 10 mg Famotidine (Pepcid) 20 mg PO BID [facility] Last Admin: 08/12/17 06:12 Dose: 20 mg Folic Acid (Folvite) 1 mg PO DAILY [facility] Last Admin: 08/12/17 06:13 Dose: 1 mg Guaifenesin (Robitussin Sf) 200 mg PO Q4H PRN PRN Reason: Cough Hydralazine HCl (Apresoline) 10 mg SLOW IVP Q4H PRN PRN Reason: Systolic BP > 180 Hydroxyurea (Hydrea) 1,000 mg PO MWF [facility] Last Admin: 08/12/17 06:13 Dose: 1,000 mg Hydroxyurea (Hydrea) [facility] Last Admin: 08/10/17 09:08 Dose: 500 mg Sodium Chloride (Normal [place] 0.9%) 1,000 mls @ 100 mls/hr IV .Q10H [facility] Last Admin: 08/12/17 06:12 Dose: 1,000 mls Loperamide HCl (Imodium) 2 mg PO PRN PRN PRN Reason: Diarrhea/Loose Stools Loratadine (Claritin) 10 mg PO DAILYPRN PRN PRN Reason: Sinus Symptoms Magnesium Hydroxide (Milk Of Magnesium) 30 ml PO DAILYPRN PRN PRN Reason: Constipation Mineral Oil/White Petrolatum (Eucerin Cream) 0 gm TOP BIDPRN PRN PRN Reason: Dry Skin Mometasone Furoate/Formoterol Fumar (Dulera 200 Mcg/5 Mcg Inhaler) 1 puff INH BID-RT [facility] Last Admin: 08/11/17 20:01 Dose: 1 puff Nitroglycerin (Nitrostat) 0.4 mg SL Q5MIN PRN PRN Reason: Chest Pain Ondansetron HCl (Zofran Odt) 4 mg PO Q6H PRN PRN Reason: Nausea/Vomiting Ondansetron HCl (Zofran) 4 mg IVP Q6H PRN PRN Reason: Nausea/Vomiting Pregabalin (Lyrica) 100 mg PO DAILY [facility] Last Admin: 08/12/17 06:15 Dose: Not Given Pregabalin (Lyrica) 100 mg PO HS [facility] Last Admin: 08/11/17 20:40 Dose: 100 mg Senna (Senokot) 2 tab PO HSPRN PRN PRN Reason: Constipation Sodium Chloride ([place] Nasal [place] 0.65%) 0 ml EA NARE QIDPRN PRN PRN Reason: Nasal Congestion Zolpidem Tartrate (Ambien) 5 mg PO HSPRN PRN PRN Reason: Insomnia
[2017-08-12] MEDS: Mometasone/Formoterol 120 PUFF INHALER INH SCH ×2 (10:42→19:01)
[2017-08-12] MEDS ORDERED: Heparin 10,000 UNITS/1 ML VIAL ONE (11:47)
[2017-08-12] MEDS ORDERED: Heparin 1000 UNIT/NS 500ML(OR) 500 ML ONE ×2 (11:47→13:14)
[2017-08-12] MEDS ORDERED: Midazolam HCl 2 mg/2 ml Vial ONE (12:24)
[2017-08-12] MEDS ORDERED: Fentanyl 100 MCG/2 ML VIAL ONE (12:24)
[2017-08-12] MEDS ORDERED: Nitroglycerin 100MG/250ML BOT 250 ML ONE (12:49)
[2017-08-12] MEDS ORDERED: Clopidogrel Bisulfate 300 MG TAB ONE (12:53)
[2017-08-12] MEDS ORDERED: Bivalirudin 250 MG VIAL ONE ×2 (12:53→14:03)
[2017-08-12] MEDS ORDERED: Sodium Chloride 0.9% 1,000 ML IV SCH (14:27)
[2017-08-12] MEDS ORDERED: HYDROcodone/Acetaminophen 5/325 mg Tablet ONE (15:28)
[2017-08-12] MEDS ORDERED: Iopamidol 370 76% 100 ML VIAL ONE (17:03)
[2017-08-12] MEDS ORDERED: Iopamidol 370 76% 50 ML VIAL FS ONE (17:03)
--- NOTE | 2017-08-12 20:09 | CON ---
DATE OF CONSULTATION: 08/12/2017 ELECTROPHYSIOLOGY CONSULTATION REPORT REFERRING PHYSICIAN: Dr. Moss. HISTORY OF PRESENT ILLNESS: I am seeing Mr. 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 His problems are: 1. Paroxysmal supraventricular tachycardia. A. Recurrent palpitations for the last month associated with atypical abdominal discomfort, lighthea dedness and falls. B. Episode of acute discomfort associated with rapid heart rates, possible supraventricular tachycar sergio up to 180-190 beats per minute, prompting current admission which terminated and not recurred aft er EMS treatment. 2. Coronary artery disease. A. He a history of mid RCA stenting back in 1993, subsequently underwent repeat left heart catheteri zation in 1996 with 80% proximal circumflex stenosis treated medically. LVEF at that time was 45%. 3. History of abdominal aortic aneurysm status post repair surgically in 1996. 4. History of hemolytic anemia, on prednisone. 5. Coronary artery risk factors. A. Hypercholesterolemia. 6. History of Raynaud's phenomenon. 7. History of sigmoid colectomy, colostomy and ultimate reversal. ALLERGIES: None. MEDICATIONS: At home include aspirin 325 mg, Lipitor, Wellbutrin, Colace, Zetia, Folvite, hydroxyure a, ibuprofen/diphenhydramine p.r.n. at bedtime, Lyrica, Dulera inhaler 2 puffs a day. SUBJECTIVE: Mr. Carrasquillo has been complaining of recurrent dizziness and lightheadedness spells, also some palpitation sensations for the last 2-3 weeks at home. He had even questionable fall, although not clear about syncope. After another episode, he went to the EMS. Initial EKG strips revealing S VT, although this is not documented in the chart. Then later, this spontaneously reverted to sinus r hythm, he remained in sinus rhythm ever since. On admission, he was noted to have elevated CK and MB fractions as well and Dr. Moss is planning a repeat heart catheterization evaluation for him. W e were consulted for the possible arrhythmia as noted above. Currently, the patient is doing well wi th no recurrent chest pains in the hospital, no PND, orthopnea, lower extremity edema. No fever, chi lls or cough. No stroke-like symptoms. Rest of the systems is otherwise unremarkable. PAST MEDICAL HISTORY: As above. SOCIAL HISTORY: Patient denies smoking, ETOH or drug use. FAMILY HISTORY: Not contributory. OBJECTIVE DATA: VITAL SIGNS: Blood pressure is 103/60, heart rate 64, respirations 14, temperature 98.5 degrees Fahr enheit. GENERAL: He is alert and oriented man in no apparent distress. NECK: Supple. Jugular veins are not distended. CHEST: Coarse without crackles. CARDIOVASCULAR: Heart sounds are regular to rate and rhythm. No murmur or gallop. ABDOMEN: Benign. Bowel sounds positive. EXTREMITIES: Lower extremities without edema, clubbing or cyanosis. Pulses are adequate. NEUROLOGIC: Patient is nonfocal. MUSCULOSKELETAL: Without joint swelling or deformities. SKIN: Without rash. DATABASE: EKGs reviewed. Initial EKG from 08/09/2017 reveals sinus tachycardia, incomplete right bu ndle-branch block pattern. Q-waves inferiorly are seen. Subsequent EKG today reveals sinus rhythm, again incomplete right bundle . No significant ST-T changes. Telemetry strips also reviewed r evealing no significant supraventricular events or ventricular events throughout the monitoring. DATABASE: Echocardiogram was reviewed on 08/10/2017 with LVEF 60%-65%. LABORATORY DATA: White count 5.4, hemoglobin 10.3, platelet count is 374. Sodium 141, potassium 4.1 , BUN is 7, creatinine 1.28. Troponins are 0.047, 0.064 and 0.035 consecutively. BNP is 141.5. ASSESSMENT AND PLAN: Mr. 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 Although EMS reports suggestive of NSVT, I do not have documentation of this event. As I discussed with Dr. Moss who is very reasonable to consider an EP study, on the other hand, h e will undergo the left heart catheterization will be performed first to rule out any coronary artery disease. Should he no significant coronary artery disease, it would be reasonable to proceed with E P study and the possible ablation procedure and should he need revascularization, we could likely pro ceed with the above as an outpatient and treat him with medication, possibly beta blockers in the int erim. Treatment options were discussed with patient and his family present at this time for exam. We will follow with you. Thank you again for allowing me to participate in the care of this patient.
[2017-08-12] MEDS: HYDROcodone/Acetaminophen 5/325 mg Tablet PO PRN (20:13)
[2017-08-12] MEDS: Atorvastatin Calcium 40 MG TAB PO SCH (20:14)
[2017-08-13] MEDS: HYDROcodone/Acetaminophen 5/325 mg Tablet PO PRN (02:47)
[2017-08-13 05:12] LABS: #Basophils 0.1 thou/uL (0.0-0.2); #Eosinphils 0.1 thou/uL (0.0-0.7); #Lymphocytes 0.9 thou/uL (1.20-3.40); #Monocytes 0.4 thou/uL (0.11-0.59); #Neutrophils 5.9 thou/uL (1.40-6.50); %Basophils 0.9 % (0.0-1.0); %Eosinophils 1.1 % (0.0-10.0); %Lymphocytes 11.9 % (21.0-51.0); %Monocytes 5.9 % (0.0-10.0); Hematocrit 30.2 % (42.0-52.0); Mean Platelet Volume 7.8 fL (7.4-10.4); Red Blood Cell (RBC) Count 2.43 mill/uL (4.70-6.10); White Blood Cell (WBC) Count 7.4 thou/uL (4.8-10.8)
[2017-08-13 05:26] LABS: ALT (SGPT) 15 U/L (8-55); AST (SGOT) 17 U/L (5-34); Alkaline Phosphatase 102 U/L (40-150); Anion Gap 10 mmol/L (10-20); BUN (Urea Nitrogen) 17 mg/dL (8.4-25.7); Bilirubin, Total 0.7 mg/dL (0.2-1.2); Calc. Creatinine Clearance 59 mL/min (70-130); Calcium 9.4 mg/dL (7.8-10.44); Carbon Dioxide 23 mmol/L (23-31); Chloride 108 mmol/L (98-107); Estimated GFR-MDRD 57; Globulin 2.2 g/dL (2.4-3.5); Protein, Total 5.8 g/dL (5.8-8.1)
[2017-08-13] MEDS: Mometasone/Formoterol 120 PUFF INHALER INH SCH (07:09)
[2017-08-13] MEDS ORDERED: Clopidogrel Bisulfate 75 MG TAB PO SCH (09:00)
[2017-08-13] MEDS: Pregabalin 50 MG CAP PO SCH (10:29)
[2017-08-13] MEDS: Ezetimibe 10 MG TAB PO SCH (10:30)
[2017-08-13] MEDS: Famotidine 20 MG TAB PO SCH (10:31)
[2017-08-13] MEDS: Folic Acid 1 MG TAB PO SCH (10:32)
[2017-08-13] MEDS: Bupropion 150 MG XL TAB PO SCH (10:32)
[2017-08-13] MEDS: Docusate 100 MG CAP PO SCH (10:32)
--- NOTE | 2017-08-13 11:34 | PDOC.PN ---
- Subjective Encounter Start Date: 08/13/17 Encounter Start Time: 07:50 Patient seen and examined. No new complaints. No overnight events - Objective MAR Reviewed: Yes Vital Signs & Weight: Vital Signs (12 hours) Temp Pulse Resp BP BP Pulse Ox 08/13/17 07:09 67 16 96 08/13/17 04:00 98.2 F 76 18 129/77 95 08/13/17 00:30 87 16 119/84 97 Weight Weight 188 lb 2 oz I&O: 08/12/17 08/13/17 08/14/17 06:59 06:59 06:59 Intake Total 1418 2149 Output Total 1075 200 Balance 343 1949 Result Diagrams: 08/13/17 04:30 08/13/17 04:30 EKG Reviewed by me: Yes (nsr) Phys Exam - Physical Examination Constitutional: NAD HEENT: PERRLA, moist MMs, sclera anicteric Neck: no JVD, supple Respiratory: no wheezing, no rales, no rhonchi Cardiovascular: RRR, no significant murmur, no rub Gastrointestinal: soft, non-tender, no distention, positive bowel sounds Musculoskeletal: no edema, pulses present Neurological: non-focal, normal sensation, moves all 4 limbs Psychiatric: normal affect, A&O x 3 Skin: no rash, normal turgor Dx/Plan (1) BREONNA (acute kidney injury) Code(s): N17.9 - ACUTE KIDNEY FAILURE, UNSPECIFIED Status: Resolved (2) Elevated troponin Code(s): R74.8 - ABNORMAL LEVELS OF OTHER SERUM ENZYMES Status: Acute Comment: due to demand ischemia (3) Palpitation Code(s): R00.2 - PALPITATIONS Status: Acute Comment: with tachycardia, hypotension and dizziness suspected for SVT (4) Anxiety and depression Code(s): F41.8 - OTHER SPECIFIED ANXIETY DISORDERS Status: Chronic (5) COPD (chronic obstructive pulmonary disease) Status: Chronic (6) Diastolic CHF Code(s): I50.30 - UNSPECIFIED DIASTOLIC (CONGESTIVE) HEART FAILURE Status: Chronic Qualifiers: Congestive heart failure chronicity: chronic Qualified Code(s): I50.32 - Chronic diastolic (congestive) heart failure (7) Dyslipidemia Code(s): E78.5 - HYPERLIPIDEMIA, UNSPECIFIED Status: Chronic (8) Hemolytic anemia Code(s): D58.9 - HEREDITARY HEMOLYTIC ANEMIA, UNSPECIFIED Status: Chronic Qualifiers: (9) History of AAA (abdominal aortic aneurysm) repair Code(s): Z98.890 - OTHER SPECIFIED POSTPROCEDURAL STATES Status: Chronic (10) Hx of coronary artery disease Code(s): Z86.79 - PERSONAL HISTORY OF OTHER DISEASES OF THE CIRCULATORY SYSTEM Status: Chronic (11) Hypotension Status: Chronic Qualifiers: (12) Peripheral neuropathy Code(s): G62.9 - POLYNEUROPATHY, UNSPECIFIED Status: Chronic (13) Macrocytic anemia Code(s): D53.9 - NUTRITIONAL ANEMIA, UNSPECIFIED Status: Chronic - Plan cont current plan of care, plan discussed w/ family * medication reviewed as below * symptomatic treatment * medically stable with current treatment * discussed with family * see discharge karla. Review of Systems - Review of Systems ENT: negative: Ear Pain, Ear Discharge, Nose Pain, Nose Discharge, Nose Congestion, Mouth Pain, Mouth Swelling, Throat Pain, Throat Swelling, Other Respiratory: negative: Cough, Dry, Shortness of Breath, Hemoptysis, SOB with Excertion, Pleuritic Pain, Sputum, Wheezing Cardiovascular: negative: Chest Pain, Palpitations, Orthopnea, Paroxysmal Noc. Dyspnea, Edema, Light Headedness, Other Gastrointestinal: negative: Nausea, Vomiting, Abdominal Pain, Diarrhea, Constipation, Melena, Hematochezia, Other Genitourinary: negative: Dysuria, Frequency, Incontinence, Hematuria, Retention , Other Musculoskeletal: negative: Neck Pain, Shoulder Pain, Arm Pain, Back Pain, Hand Pain, Leg Pain, Foot Pain, Other Skin: negative: Rash, Lesions, Deacon, Bruising, Other - Medications/Allergies Allergies/Adverse Reactions: Allergies Allergy/AdvReac Type Severity Reaction Status Date / Time No Known Drug Allergies Allergy Verified 12/17/16 21:35 Medications: Current Medications Acetaminophen (Tylenol) 650 mg PO Q4H PRN PRN Reason: Headache/Fever or Pain Last Admin: 08/11/17 20:44 Dose: 650 mg Hydrocodone Bitart/Acetaminophen ([place] 5/325) 1 tab PO Q4H PRN PRN Reason: Moderate Pain (4-6) Last Admin: 08/13/17 02:47 Dose: 1 tab Al Hydroxide/Mg Hydroxide (Maalox) 30 ml PO Q6H PRN PRN Reason: Heartburn or Indigestion Albuterol/Ipratropium (Duoneb) 3 ml NEB [id number] PRN PRN Reason: SOB &/or Wheezing Artificial Tears (Tears Naturale) 0 drop EA EYE PRN PRN PRN Reason: Dry Eyes Aspirin (Aspirin Chewable) 81 mg PO DAILY [facility] Last Admin: 08/13/17 10:29 Dose: 81 mg Atorvastatin Calcium (Lipitor) 40 mg PO HS [facility] Last Admin: 08/12/17 20:14 Dose: 40 mg Bupropion HCl (Wellbutrin Xl) 150 mg PO DAILY [facility] Last Admin: 08/13/17 10:32 Dose: 150 mg Clopidogrel Bisulfate (Plavix) 75 mg PO DAILY [facility] Last Admin: 08/13/17 10:32 Dose: 75 mg Docusate Sodium (Colace) 100 mg PO BID [facility] Last Admin: 08/13/17 10:32 Dose: 100 mg Ezetimibe (Zetia) 10 mg PO Q2D@0900 [facility] Last Admin: 08/13/17 10:30 Dose: 10 mg Famotidine (Pepcid) 20 mg PO BID [facility] Last Admin: 08/13/17 10:31 Dose: 20 mg Folic Acid (Folvite) 1 mg PO DAILY [facility] Last Admin: 08/13/17 10:32 Dose: 1 mg Guaifenesin (Robitussin Sf) 200 mg PO Q4H PRN PRN Reason: Cough Hydralazine HCl (Apresoline) 10 mg SLOW IVP Q4H PRN PRN Reason: Systolic BP > 180 Hydroxyurea (Hydrea) 1,000 mg PO MWF [facility] Last Admin: 08/12/17 06:13 Dose: 1,000 mg Hydroxyurea (Hydrea) [facility] Last Admin: 08/10/17 09:08 Dose: 500 mg Loperamide HCl (Imodium) 2 mg PO PRN PRN PRN Reason: Diarrhea/Loose Stools Loratadine (Claritin) 10 mg PO DAILYPRN PRN PRN Reason: Sinus Symptoms Magnesium Hydroxide (Milk Of Magnesium) 30 ml PO DAILYPRN PRN PRN Reason: Constipation Metoprolol Succinate (Toprol Xl) 25 mg PO DAILY [facility] Last Admin: 08/13/17 10:29 Dose: 25 mg Mineral Oil/White Petrolatum (Eucerin Cream) 0 gm TOP BIDPRN PRN PRN Reason: Dry Skin Mometasone Furoate/Formoterol Fumar (Dulera 200 Mcg/5 Mcg Inhaler) 1 puff INH BID-RT [facility] Last Admin: 08/13/17 07:09 Dose: 1 puff Nitroglycerin (Nitrostat) 0.4 mg SL Q5MIN PRN PRN Reason: Chest Pain Ondansetron HCl (Zofran Odt) 4 mg PO Q6H PRN PRN Reason: Nausea/Vomiting Ondansetron HCl (Zofran) 4 mg IVP Q6H PRN PRN Reason: Nausea/Vomiting Pregabalin (Lyrica) 100 mg PO DAILY [facility] Last Admin: 08/13/17 10:29 Dose: 100 mg Pregabalin (Lyrica) 100 mg PO HS [facility] Last Admin: 08/12/17 20:12 Dose: 100 mg Senna (Senokot) 2 tab PO HSPRN PRN PRN Reason: Constipation Sodium Chloride ([place] Nasal [place] 0.65%) 0 ml EA NARE QIDPRN PRN PRN Reason: Nasal Congestion Zolpidem Tartrate (Ambien) 5 mg PO HSPRN PRN PRN Reason: Insomnia
--- NOTE | 2017-08-13 14:02 | DIS ---
PRIMARY CARE PHYSICIAN: Andriy Robles M.D. DATE OF ADMISSION: 08/10/2017 DATE OF DISCHARGE: 08/13/2017 DISCHARGE DISPOSITION: Home. PRIMARY DISCHARGE DIAGNOSES: 1. Palpitation, likely related with supraventricular tachycardia. 2. Elevated troponin, likely due to angina, status post cardiac catheterization and stent in left ci rcumflex artery and right coronary artery. 3. Acute kidney failure on admission, resolved. SECONDARY DISCHARGE DIAGNOSES: Anxiety and depression, chronic obstructive pulmonary disease, chroni c diastolic congestive heart failure, dyslipidemia, hemolytic anemia, essential thrombocytosis, histo ry of abdominal aortic aneurysm repair, history of coronary artery disease, microcytic anemia, modera te mitral regurgitation, peripheral neuropathy. PRIMARY PROCEDURE/OPERATION: Cardiac catheterization was performed by Dr. Moss and bare metal st ent was placed. RADIOLOGICAL INVESTIGATION: Chest x-ray was normal. CT angio was negative for PE. Echocardiography showed EF 60-65% with diastolic dysfunction. SIGNIFICANT LABORATORY DATA: WBC 7.4, hemoglobin 12.1, platelets 395. Sodium 137, potassium 3.9, BU N 17, creatinine 1.23, calcium 9.4. LFTs normal. Troponin 0.035, LDL 48, TSH 3.70. DISCHARGE MEDICATIONS: Aspirin 81 mg p.o. daily, Lipitor 40 mg p.o. at bedtime, Wellbutrin-SR 150 mg p.o. b.i.d., Plavix 75 mg p.o. daily, Colace 100 mg p.o. b.i.d., Zetia 10 mg p.o. every other day, f olic acid 1 mg p.o. daily, hydroxyurea 1000 mg p.o. b.i.d even on Saturday, Saturday, Saturday, and 500 mg p.o. b.i.d. on rest of the days, Toprol-XL 25 mg p.o. daily, Dulera 2 puffs inhalation daily, Lyri ca 100 mg p.o. at bedtime. CONTRAINDICATIONS: None. CODE STATUS: FULL. INPATIENT CONSULTANTS: Dr. Moss was consulted for palpitation who did cardiac catheterization. Dr. Gracy Lynch was consulted for electrophysiology fibrillation and he recommended outpatient proced ure if needed. TEST RESULTS PENDING ON DISCHARGE: None. ALLERGIES: No known drug allergies. DISCHARGE PLAN: Post hospital, the patient will follow up with Dr. Andriy Robles, Dr. Moss and Dr. Gracy Lynch as instructed. HOSPITAL COURSE: A 76-year-old male who was admitted by me. Please see my HPI for further details. This patient was having acute onset of palpitations with chest pain and at home. The patient's checked vital signs. His pulse was 190s and blood pressure was very low. This patient was brought to the emergency room at that time, his symptomatology improved and his blood pressure and pulse was also normal. His EKG was unremarkable. We suspected SVT at home, but it was not confirmed to rule out thromboembolic disorder. We did CT an jessica, which was negative for PE. The patient was initially admitted as observation to telemetry floor and we did echocardiography, whi ch showed diastolic dysfunction. Cardiology recommended that given his elevated troponin and classic history of angina. He will need cardiac catheterization. Cardiac catheterization was done and the patient was found with 2-vessel CAD and bare metal stent was placed and Plavix was advised. For suspected SVT, Dr. Gracy Lynch was consulted and he recommended that at this point, we will wait until further episode because we are hoping that after cardiac catheterization and after reversal of ischemia, he may not get further SVTs. Electrophysiology study was not found, but that can be done a s an outpatient basis. Cardiology cleared him for discharge. The above-mentioned new medication prescription sent to his armacy. The patient has seen and examined at bedside today. Plan of care discussed with the patient 's . Please see my progress note from today for further details. Total time spent on discharge day 31 minutes.
--- NOTE | 2017-08-13 16:33 | EKG ---
Test Reason : POST STENTS X3 -RCA Blood Pressure : / mmHG Vent. 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
--- NOTE | 2017-08-13 16:39 | EKG ---
Test Reason : Blood Pressure : / mmHG Vent. 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
--- NOTE | 2017-08-13 17:00 | CCL ---
CARDIAC CATHETERIZATION REPORT: Date: 08/12/17 PROCEDURE: Left heart catheterization, selective arteriography, and stent placement in right coronary artery. INDICATION: Chest pain, known coronary artery disease, tachycardia. DESCRIPTION OF PROCEDURE: The patient was brought to the cardiac energy systems laboratory director and the right groin was prepped and draped in the usual fashion. 1% lidocaine was infiltrated. A 6 [place] sheath was placed into the right femoral artery and heparin 3,000 units given. A 6 [place] angulated pigtail was inserted and pressures were obtained. Left ventriculogram was performed using 30 ml of contrast at 12 ml/s in a TOVAR 30 degree projection. Pressures were obtained and the pigtail was removed over an exchange wire for a 6 [place] Mac left-4. Left coronary arteriography was performed and this was exchanged over the wire for a 6 [place] right-4. The right-4 was exchanged over the wire for a 6 [place] right-4 guide. Plavix 600 mg PO was given. Angiomax was started. Nitroglycerin 200 mcg was given into the right coronary artery. A floppy Choice wire was advanced into the right coronary artery and Rebel 3.5 x 28 mm stent was inserted but would not advance. This was then removed and decision was made to exchange over the wire for an Amplatz left-4. Floppy Choice wire was then advanced into the coronary artery. The Emerge 3.5 x 15 mm balloon was inserted and would not advance to the area of stenosis. Decision was made then to change to an Emerge 2.0 x 15 mm balloon, which was advanced and dilated the mid RCA lesion. Emerge 3.5 x 15 mm balloon was then inserted, but once again would not advance. The left-1 guide catheter was exchanged over the wire for a right-4 guide catheter. Choice floppy was again advanced to the distal right coronary artery. Emerge 3.5 x 15 mm balloon was then able to be advanced into the area of stenosis and the area was dilated. That catheter was position was lost and the ostium could not be re- engaged. The decision was then made to exchange over the wire back to the right- 4 guide catheter. Also, during that exchange, the 6 [place] sheath was exchanged for a 6 [place] long sheath. Once the right-4 was in position, an extra support wire was used this time. This was inserted and an Emerge 3.5 x 15 mm balloon was then used to dilate to the proximal portion of the right coronary artery. The Rebel 3.5 x 28 mm stent was then positioned in the mid right coronary artery and deployed. Proximal to this, Rebel 3.5 x 12 mm and then proximal to this, another 3.5 x 12 mm. Final result was excellent. The patient was then transferred to the PCU after the sheath was sutured in place. RESULTS: PRESSURES: Aorta 128/61, mean of 87 Left Ventricle 135/0 LEFT VENTRICULOGRAM: There was severe inferobasal hypokinesis with ejection fraction of 45-50%. CORONARY ARTERIOGRAPHY: 1. The left main was normal. 2. The LAD had a 30% proximal stenosis. 3. The circumflex had a 50% proximal stenosis. There was a 70% lesion in a branch of the obtuse marginal I. 4. The right coronary artery had a 70-80% mid stenosis. INTERVENTION RESULTS: The initial lesion was 70-80%, final lesion was 0%. IMPRESSION: 1. Two vessel coronary artery disease (circumflex and right coronary artery). 2. Mild left ventricular dysfunction. 3. Successful bare metal stent mid to proximal right coronary artery. [facility]
[2017-08-13 20:53] VITALS: BP 112/60; TEMP 97.6
== END 2017-08-13 15:15 | disposition home or self-care (01) | DRG 249 ==
LOC: ERS 10:25 → 2SW 16:14 → OBSVTOIN 08-10 09:22 → 2NO 08-10 13:27
PROVIDERS: ADMIT Internal Medicine; ATTEND Internal Medicine
PROC: 4A023N7 Measurement of Cardiac Sampling and Pressure, Left Heart, Percutaneous Approach (ICD-10-PCS; principal; 2017-08-12)
PROC: 02703DZ Dilation of Coronary Artery, One Artery with Intraluminal Device, Percutaneous Approach (ICD-10-PCS; 2017-08-12)
PROC: B2111ZZ Fluoroscopy of Multiple Coronary Arteries using Low Osmolar Contrast (ICD-10-PCS; 2017-08-12)
DX: I47.1 Supraventricular tachycardia (principal); N17.9 Acute kidney failure, unspecified; I95.9 Hypotension, unspecified; I11.0 Hypertensive heart disease with heart failure; I24.8 Other forms of acute ischemic heart disease; I50.32 Chronic diastolic (congestive) heart failure; D69.6 Thrombocytopenia, unspecified; D58.9 Hereditary hemolytic anemia, unspecified; I25.119 Atherosclerotic heart disease of native coronary artery with unspecified angina pectoris; G62.9 Polyneuropathy, unspecified; I25.2 Old myocardial infarction; E78.5 Hyperlipidemia, unspecified; F41.9 Anxiety disorder, unspecified; Z79.82 Long term (current) use of aspirin; I73.00 Raynaud's syndrome without gangrene; Z96.652 Presence of left artificial knee joint; F32.9 Major depressive disorder, single episode, unspecified; Z87.891 Personal history of nicotine dependence; J44.9 Chronic obstructive pulmonary disease, unspecified; I34.0 Nonrheumatic mitral (valve) insufficiency; Z90.49 Acquired absence of other specified parts of digestive tract; D53.9 Nutritional anemia, unspecified
CPT/HCPCS: 36415; 71010; 71275; 80048; 80053; 80061; 82550; 82553; 83880; 84443; 84484; 85025; 85347; 92928; 93005; 93010; 93306; 93458; 93798; 94760; 96360; C1725; C1769; C1876; C1887; J0583; J1644; J2250; J3010

== ENCOUNTER 2017-09-20 11:26 | Day surgery (SDC) | payer MEDICARE ==
[2017-09-19 10:58] VITALS: BMI 26.4
[2017-09-20 11:59] LABS: #Eosinphils 0.1 thou/uL (0.0-0.7); #Lymphocytes 0.9 thou/uL (1.20-3.40); #Monocytes 0.3 thou/uL (0.11-0.59); #Neutrophils 3.5 thou/uL (1.40-6.50); %Basophils 0.7 % (0.0-1.0); %Lymphocytes 19.4 % (21.0-51.0); %Monocytes 6.9 % (0.0-10.0); Hemoglobin 11.2 g/dL (14.0-18.0); Mean Corpuscular HGB CONC 33.1 g/dL (32.0-36.0); Mean Corpuscular Hemoglobin 41.9 pg (27.0-31.0); Mean Platelet Volume 8.2 fL (7.4-10.4); Platelet Count 294 thou/uL (130-400); RBC Distribution Width 19.7 % (11.5-14.5); Red Blood Cell (RBC) Count 2.68 mill/uL (4.70-6.10); White Blood Cell (WBC) Count 4.9 thou/uL (4.8-10.8)
[2017-09-20 12:07] LABS: PTT 27.2 SEC (22.9-36.1); Prothrombin Time 13.4 SEC (12.0-14.7)
[2017-09-20 12:20] LABS: Anion Gap 13 mmol/L (10-20); BUN (Urea Nitrogen) 22 mg/dL (8.4-25.7); Calc. Creatinine Clearance 57 mL/min (70-130); Calcium 9.8 mg/dL (7.8-10.44); Carbon Dioxide 24 mmol/L (23-31); Chloride 107 mmol/L (98-107); Estimated GFR-MDRD 55; Glucose 88 mg/dL (83-110); Potassium 4.7 mmol/L (3.5-5.1); Sodium 139 mmol/L (136-145)
[2017-09-20] MEDS ORDERED: Propofol 500 MG/50 ML VIAL ONE (13:34)
[2017-09-20] MEDS ORDERED: Heparin 10,000 UNITS/1 ML VIAL ONE (13:38)
[2017-09-20] MEDS ORDERED: Isoproterenol 0.2 MG/1 ML AMP ONE ×2 (13:57→14:22)
[2017-09-20] MEDS ORDERED: Ondansetron HCl/PF 4 MG/2 ML Vial IVP PRN (15:23)
[2017-09-20] MEDS ORDERED: Promethazine HCl 25 MG/ML VIAL SLOW IVP PRN (15:23)
--- NOTE | 2017-09-21 17:55 | CCLSPC ---
REASON FOR PROCEDURE: The patient is a 76-year-old male with history of coronary artery disease, recent presentation with SVT tachycardia and possibly a non-STEMI. He had had recurrence since. He is to have EP study and ablation procedure.. PROCEDURE: The patient received Versed and deep sedation with propofol by Anesthesia specialist. After adequate sedation achieved, the left femoral and the right femoral venous area was prepped, draped and anesthetized using subcutaneous lidocaine. With ultrasound guidance, a 6 and 8 [place] sheath was introduced into the left femoral vein and an 8 [place] sheath on the right femoral vein. The decapolar CS catheter was advanced to the CS and a couplar HIS catheter was then inserted right ventricular His bundle and right atrium as well. Baseline measurements were obtained. Initial cycle length 990 milliseconds, SC of 185. QRS 110, QT 45, AH 85, HV 37 milliseconds. Following that, sinus node recovery time was measured to 1400 with corrected sinus node recovery time was 555 after 500 milliseconds pacing. The AV Wenckebach cycle length was achieved at 360 milliseconds, retrograde Wenckebach cycle length was seen at 620 milliseconds. AV sujit ERP was noted with 600/220. Concentrated retrograde VA conduction is seen during VA pacing. Following that burst atrial pacing was also performed and we were able to induce in atrial flutter with cycle length about 330 milliseconds with post-pacing interval shorter by the proximal CS and lateral CS and the right atrial origin. Cavotricuspid isthmus ablation was performed with the help of a ThermoCool accessed bidirectional catheter with 40 chapman burn. During the ablation, the atrial flutter terminating. Cavotricuspid isthmus was demonstrated during CS proximal pacing with post-pacing intervals increasing up to 118 milliseconds by the ablation line and somewhat shorter post -pacing interval was noted in the lateral right atrium suggestive of complete block. Following that isuprel was administered the lisinopril. We were able to induce an AV sujit reentrant tachycardia with heart rates 189 beats per minute. The was terminated with attempts of ventricular overdrive pacing. Following that, the slow pathway modification was performed which successfully eliminating inducibility AV sujit reentry tachycardia echo beats were still seen , but no was noted. The AV Wenckebach cycle length was modified to 410 milliseconds. Following that isuprel was again reinduced. No AV conduction of the arrhythmias were seen. The transisthmus block was still persisting. AV sujit function and HIS purkinje function was intact. No change in the cardiac silhouette noted post-ablation CONCLUSION: 1. Successful induction of typical atrial flutter with successful cavotricuspid isthmus ablation. 2. Inducible AV sujit reentry tachycardia seen along with dual AV sujit physiology status post slow pathway modification reentering is noninducible. 3. Abnormal sinus node function on beta kyle therapy. 4. No infrahisian conduction disease post-ablation. PLAN: 1. Routine postop followup. 2. Monitor for bradycardic side effects. Consider decreasing beta kyle versus pacing if significant symptoms occur. [facility]
== END 2017-09-20 19:17 | disposition home or self-care (01) ==
LOC: CCL 11:26
PROVIDERS: ATTEND Internal Medicine Cardiovascular Disease
DX: I47.1 Supraventricular tachycardia (principal); I25.2 Old myocardial infarction; J44.9 Chronic obstructive pulmonary disease, unspecified; E78.5 Hyperlipidemia, unspecified; I50.32 Chronic diastolic (congestive) heart failure; F41.8 Other specified anxiety disorders; I73.00 Raynaud's syndrome without gangrene; D58.9 Hereditary hemolytic anemia, unspecified; Z79.02 Long term (current) use of antithrombotics/antiplatelets; Z79.82 Long term (current) use of aspirin; Z79.51 Long term (current) use of inhaled steroids; Z79.899 Other long term (current) drug therapy; Z96.652 Presence of left artificial knee joint; Z90.49 Acquired absence of other specified parts of digestive tract; Z98.890 Other specified postprocedural states; Z87.891 Personal history of nicotine dependence; Z82.49 Family history of ischemic heart disease and other diseases of the circulatory system
CPT/HCPCS: 76942; 80048; 85025; 85610; 85730; 93005 ×2; 93613; 93621; 93623; 93653; C1730 ×3; C1769; 93010; J1644; J2704

== ENCOUNTER 2017-10-15 13:04 | Outpatient (CLI) | payer MEDICARE ==
--- NOTE | 2017-10-15 15:00 | RAD ---
TWO VIEWS CHEST: Comparison: 02-02-15 History: Dyspnea. FINDINGS: Two views of the chest show normal sized cardiomediastinal silhouette. There is no evidence of consol idation, mass, or pleural effusion. Degenerative changes are seen in the spine. IMPRESSION: No evidence of acute cardiopulmonary disease. POS: [facility]
== END 2017-10-15 13:05 | disposition home or self-care (01) ==
LOC: RAD 13:04
PROVIDERS: ATTEND Internal Medicine Pulmonary Disease
DX: R06.00 Dyspnea, unspecified (principal)
CPT/HCPCS: 71046

== ENCOUNTER 2017-10-30 12:41 | Outpatient (CLI) | payer MEDICARE ==
--- NOTE | 2017-10-30 14:26 | RAD ---
LUMBAR SPINE THREE VIEWS: History: Lumbar spine stenosis. Low back pain radiating down both legs. Comparison: None. FINDINGS: Lateral neural, lateral extension, and lateral flexion views of the lumbar spine demonstrate five lum bar vertebral bodies. Moderate degenerative disc disease at the lumbosacral junction. Atherosclerosis of the aorta is noted. There is 4 mm retrolisthesis of L2 upon L3 in the neutral position. Upon flexion, there is 2 mm retro listhesis of L2 upon L3. Upon extension there is 3 mm retrolisthesis of L2 upon L3. IMPRESSION: 1. Grade I anterolisthesis of L2 upon L3 without significant change upon extension/flexion. 2. Atherosclerosis of the aorta. Evaluation is limited and incomplete. The aorta is prominent. Correl ation made with CT of 08-27-16 does demonstrate aneurysmal dilatation. POS: [facility]
--- NOTE | 2017-10-30 15:07 | MRI ---
MRI LUMBAR SPINE WITHOUT CONTRAST: HISTORY: Lumbar spinal stenosis. Low back pain radiating down both legs, stopping at the thighs. COMPARISON: 09/15/13. TECHNIQUE: Lumbar spine MRI is performed without intravenous Gadolinium administration. Multisequential, multip lanar imaging is performed. FINDINGS: There is heterogeneous marrow signal intensity of the lumbar vertebrae consistent with senescent brown ge. Lumbar spine vertebral body height is maintained. No fracture. The previously suggested of ret rolisthesis at L2 upon L3 is not appreciated on the current exam. There is atherosclerosis and dilatation of the aorta, incompletely evaluated. Symmetric attenuation of the psoas muscles. Visualized solid organs are unremarkable. Conus medullaris terminates at the T12-L1 disk space. T12-L1: Adequate disk hydration. No central canal stenosis or foraminal narrowing. L1-L2: Minimal loss of disk space height. No significant central canal stenosis or foraminal narrow ing. L2-L3: Moderate to severe loss of disk space height. No significant posterior disk abnormality. Mi ld ligamentum flavum thickening and facet hypertrophy. No significant central canal stenosis. Moder ate right and mild left foraminal narrowing. L3-L4: Mild loss of disk space height. Generalized disk bulge, ligamentum flavum thickening, and fa cet hypertrophy result in moderate central canal stenosis. Moderate right and mild left foraminal na rrowing. There is a small amount of fluid in both intraarticular facet joints. L4-L5: There is mild loss of disk space height. Generalized disk bulge, ligamentum flavum thickenin g, and facet hypertrophy result in minimal central canal stenosis. Minimal encroachment upon both diallo barticular zones without obscuration of either traversing L5 nerve root. There is a small amount of fluid in both facet joints. Mild right and moderate left foraminal narrowing. L5-S1: Desiccation with severe loss of disk space height. Nevertheless, no significant central emerson l stenosis. Moderate bilateral foraminal narrowing. IMPRESSION: Degenerative change of the lumbar spine as above. POS: [facility]
== END 2017-10-30 12:42 | disposition home or self-care (01) ==
LOC: TBSIIMAG 12:41
PROVIDERS: ATTEND Neurological Surgery
DX: M48.061 Spinal stenosis, lumbar region without neurogenic claudication (principal); G45.0 Vertebro-basilar artery syndrome; M43.16 Spondylolisthesis, lumbar region; I70.0 Atherosclerosis of aorta; M47.896 Other spondylosis, lumbar region
CPT/HCPCS: 72100; 72148

== ENCOUNTER 2018-05-21 13:06 | Outpatient (CLI) | payer MEDICARE ==
--- NOTE | 2018-05-21 14:59 | CT ---
NONCONTRAST HIGH RESOLUTION CT THORAX: 05/21/2018 HISTORY: Idiopathic pulmonary fibrosis. Interstitial thickening. COMPARISON: CTA thorax from 08/10/2017. FINDINGS: Again noted is interstitial thickening, predominantly within the periphery but seen diffusely through out the lungs, bilaterally, with associated subpleural reticular opacities and areas of minimal honey combing, again predominantly at the periphery. Findings have not significantly progressed from the s tudy in 2017. There is scattered mild bronchiectasis within the lungs bilaterally, greater in the ri ght lower and left upper lobes. No significant ground glass opacities are seen. No pleural effusion is identified. The pulmonary arteries are not enlarged. Dense vascular calcification is seen in the coronary arteries, as well as involving the thoracic aort a. Mild degenerative changes are seen in the spine. IMPRESSION: 1. Chronic interstitial fibrotic lung changes, which may be related to idiopathic pulmonary fibrosis or idiopathic nonspecific interstitial pneumonia. Other etiologies are also a possibility. 2. No ground glass opacities are visualized, and there is no pleural effusion. 3. Scattered mild bronchiectasis. POS: [facility]
== END 2018-05-21 13:07 | disposition home or self-care (01) ==
LOC: CT 13:06
PROVIDERS: ATTEND Internal Medicine Pulmonary Disease
DX: J84.9 Interstitial pulmonary disease, unspecified (principal); J47.9 Bronchiectasis, uncomplicated
CPT/HCPCS: 71250; 94060; 94727; 94729

== ENCOUNTER 2019-02-24 14:26 | Inpatient (IN) | payer MEDICARE ==
[~2019-02-24 14:26] MED LIST: ISOVUE-370 76%-LOCM 1 ML ONE
[2019-02-24 15:55] LABS: Hemoglobin 11.3 g/dL (14.0-18.0); Mean Corpuscular Hemoglobin 41.6 pg (27.0-31.0); Platelet Count 338 thou/uL (130-400); Red Blood Cell (RBC) Count 2.71 mill/uL (4.70-6.10); White Blood Cell (WBC) Count 14.4 thou/uL (4.8-10.8)
[2019-02-24 16:18] LABS: ALT (SGPT) 19 U/L (8-55); AST (SGOT) 18 U/L (5-34); Alkaline Phosphatase 91 U/L (40-150); Anion Gap 14 mmol/L (10-20); BUN (Urea Nitrogen) 21 mg/dL (8.4-25.7); Bilirubin, Total 0.8 mg/dL (0.2-1.2); Calc. Creatinine Clearance 0 mL/min (70-130); Calcium 9.6 mg/dL (7.8-10.44); Carbon Dioxide 21 mmol/L (23-31); Chloride 104 mmol/L (98-107); Estimated GFR-MDRD 51; Globulin 2.8 g/dL (2.4-3.5); Glucose 114 mg/dL (83-110); Lipase 35 U/L (8-78); Potassium 4.2 mmol/L (3.5-5.1); Protein, Total 6.8 g/dL (5.8-8.1); Sodium 135 mmol/L (136-145)
--- NOTE | 2019-02-24 16:20 | RAD ---
EXAM: CHEST ONE VIEW: 02/24/19 HISTORY: Dyspnea. COMPARISON: High resolution chest CT, 05/21/18; chest PA and lateral, 10/15/17. There is bilateral hyperinflation and chronic interstitial lung disease noted bilaterally, evidence f or chronic interstitial fibrosis. On today's study in the right lower lobe and also in the left lower lobe, there appears to be more density within the lung parenchyma raising the concern for the possib ility of some acute atypical pneumonia or pneumonitis. The mid and upper lung zones appear stable. IMPRESSION: Evidence for chronic lung changes and chronic interstitial fibrosis. Minimal increased opacity change s within the right and left lower lobe regions from prior study raising concern for the possibility o f coexistent acute atypical pneumonia or pneumonitis. Short term follow-up to include upright PA and lateral chest when the patient can undergo that is suggested. POS: [facility]
--- NOTE | 2019-02-24 16:33 | ULT ---
US Gallbladder RUQ History: Pain Comparison: None. Findings: Real-time grayscale and color evaluation of the right upper quadrant of the abdomen was per formed. Visualized portion of the aorta, IVC, and pancreas are unremarkable. Gallbladder is distended. No per icholecystic fluid. No wall thickening. Portal vein is patent with antegrade flow. Common bile duct measures 5 mm, normal. Liver measures 17.8 cm in length. Right kidney measures 10.9 x 4.6 x 4 cm without mass, hydronephrosis, or abnormal calcifications. Impression: No evidence for acute gallbladder pathology.
[2019-02-24 16:40] LABS: Anisocytosis MODERATE=16-30 cells (100X) (0-5/hpf); Band 7 % (5-11); Large Platelets SLIGHT; Lymphocytes 2 % (21-51); MDiff Complete? YES; Macrocytosis MODERATE=16-30 cells (100X) (0-5/hpf); Monocytes 7 % (0-10); Neutrophil 84 % (42-75); Ovalocytes SLIGHT = 2-5 cells (100X) (0-1/hpf); Platelet Morphology Comment Appears Adequate; Polychromasia SLIGHT = 2-3 cells (100X) (0-2/hpf); Schistocytes SLIGHT = 2-5 cells (100X) (0-1/hpf)
--- NOTE | 2019-02-24 17:47 | CT ---
EXAM: CTA of the chest and abdomen HISTORY: Abdominal and chest pain COMPARISON: 08/27/2016 TECHNIQUE: Multiple contiguous axial images were obtained a CTA of the chest and abdomen with contras t per aortic dissection protocol. Sagittal and coronal 3-D MIP reformats were performed. FINDINGS: HEART: Normal in size without focal cardiac abnormality. Calcifications in the coronary arteries. PULMONARY ARTERIES: Normal in caliber without filling defects to suggest pulmonary emboli. MEDIASTINUM: No hilar or mediastinal lymphadenopathy. LUNGS: Scattered airspace opacity is seen in the right middle lobe. An 8 mm area of peripheral nodula rity is seen just above the right hemidiaphragm in the right lower lobe on image 101 of 196. Emphysematous changes are seen. Interstitial lung disease is seen in the lung bases. PLEURAL SPACE: No pleural effusion or pneumothorax. CHEST AND ABDOMINAL WALL SOFT TISSUES: Unremarkable LIVER: Unremarkable. GALLBLADDER: Unremarkable. KIDNEYS: Unremarkable. SPLEEN: 2.8 cm cyst. Other subcentimeter hypodensities also likely represent cysts but are too small to definitely characterize. PANCREAS: Unremarkable. BOWEL: Unremarkable. RETROPERITONEUM: No lymphadenopathy BONES: Degenerative changes in the spine. A sclerotic lesion in the seventh left anterior rib may rep resent a healing rib fracture. ASCENDING THORACIC AORTA: Normal caliber without evidence of dissection or aneurysmal dilatation. DESCENDING THORACIC AORTA: Normal caliber without evidence of dissection or aneurysmal dilatation. ABDOMINAL AORTA: The patient is status post repair of the infrarenal aorta. Multiple surgical clips p roduce streak artifact limiting the exam. There is aneurysmal dilatation of the infrarenal aorta measuring 4.2 cm in greatest dimension. There is likely a graft within the aorta measuring 2.3 cm in greatest dimension. This graft extends down to the common iliac arteries. CELIAC TRUNK: Patent SMA: Patent DAVE: Occluded by a coil RENAL ARTERIES: Bilateral single renal arteries without significant atherosclerotic disease RIGHT COMMON ILIAC ARTERY: Mild diffuse atherosclerotic disease LEFT COMMON ILIAC ARTERY: Heavily calcified with questionable stenosis on the inferior most image. IMPRESSION: 1. Status post repair of the infrarenal aorta without evidence of thoracic or abdominal aortic aneury sm or dissection 2. Right middle lobe pneumonia
[2019-02-24 18:05] LABS: Bilirubin Negative (Negative); Blood, Urine Negative (Negative); Clarity Clear (Clear); Glucose, Urine (Dipstick) Normal (Negative); Leukocyte Negative Leu/uL (Negative); Nitrite Negative (Negative); Protein, Urine (Dipstick) 20 mg/dL (Neg-Trace); Urobilinogen Normal mg/dL (Less than 2)
[2019-02-24] MEDS ORDERED: cefTRIAXone\\ROCEPHIN 1 GM VIAL ONE (18:10)
[2019-02-24] MEDS ORDERED: Azithromycin 250 MG TAB ONE (18:10)
[2019-02-24] MEDS ORDERED: Aspirin Chewable 81 MG TAB ONE (18:15)
[2019-02-24] MEDS ORDERED: Senokot S 8.6-50 MG TAB PO PRN (19:33)
[2019-02-24] MEDS ORDERED: Acetaminophen 325 MG TAB PO PRN (19:33)
[2019-02-24 19:42] LABS: Troponin I Less than 0.010 ng/mL (< 0.028)
[2019-02-24] MEDS ORDERED: Hydroxyurea 500 MG CAP PO SCH (19:45)
[2019-02-24 21:03] LABS: Troponin I Less than 0.010 ng/mL (< 0.028)
[2019-02-24 21:43] VITALS: BMI 26.4
[2019-02-24] MEDS: Heparin 5,000 UNITS/ML VIAL SC SCH (21:46)
[2019-02-24] MEDS: Famotidine 20 MG TAB PO SCH (21:46)
[2019-02-24] MEDS: Atorvastatin Calcium 40 MG TAB PO SCH (21:46)
[2019-02-24] MEDS: Sodium Chloride 0.9% 1,000 ML IV SCH (21:46)
--- NOTE | 2019-02-25 01:30 | HP ---
CHIEF COMPLAINT: Chest pain and shortness of breath. HISTORY OF PRESENT ILLNESS: The patient is an 78-year-old male with a past medical history of CAD and x4 stents, history of hemolytic anemia, and history of Raynaud disease, who presents to the hospital with complaints of chest pain and shortness of breath. The patient stated that on Saturday, he mowed his lawn and he has been more time on mowing his lawn and doing things than usual. He took about 3 hours and was very hot, did not feel well after that, felt very short of breath, and felt like he could not catch his breath. The patient stated that he has again felt unwell on Saturday. He also had some nausea and some vomiting on Saturday, the day on presentation. He denies any fevers or chills. He denies any chest pressure or chest pain. However, he did state that he did have a localized pain upon palpation, which was sharp in nature around his rib cage area. The patient stated that he mowed his lawn about last month and did not feel this way last month. PAST MEDICAL HISTORY: He has a history of paroxysmal SVT. He had an ablation by Dr. Dubose in 2018. He has had a history of CAD. He has stents x4, one stent to his mid RCA in 1993, then he had another stent to his right coronary artery, and a couple more after that. He also has a history of hemolytic anemia. He has a history of hypercholesterolemia. He also has a history of thrombocytosis. PAST SURGICAL HISTORY: He has had an angioplasty. He has had knee replacements. He has had foot surgeries and he has had an open transabdominal aortic aneurysm repair. He has had stents x4 and also had a cardiac ablation. FAMILY HISTORY: Father is . Mother is , had allergies, heart disease, and high blood pressure. SOCIAL HISTORY: He was a former smoker, a pack a day, quit about 3 or 4 years ago. He had no chemical exposures. 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 Denies any alcohol use or drug use. He is retired. Lives alone and is a full code. ALLERGIES: HE HAS NO KNOWN DRUG ALLERGIES. MEDICATIONS: As of the following; he takes; 1. Lipitor 40 mg daily. 2. He is on aspirin 325 daily. 3. He is on hydroxyurea. 4. He is on Lyrica, lorazepam, and folic acid. REVIEW OF SYSTEMS: All negative except for the ones mentioned above in HPI. PHYSICAL EXAMINATION: VITAL SIGNS: Are as the following; temperature 98.8, heart rate of 80, blood pressure of 120/60. He is 99% on 2 L. GENERAL: He is awake, alert, and oriented x3. Does not appear in any distress. HEENT: Normocephalic, atraumatic. No lymphadenopathy noted. Pupils are equal and reactive to light. CV: S1 and S2 present. No murmurs, rubs, or gallops. LUNGS: Clear to auscultation. No rhonchi or wheezes noted. ABDOMEN: Soft and nontender. Bowel sounds are present x2. EXTREMITIES: No edema. Pedal pulses are present x2. NEUROVASCULAR: No focal deficits noted. SKIN: No cuts, lesions, or bruises noted. LABORATORY RESULTS: As of the following; his WBC is 14.4, hemoglobin of 11.3, hematocrit of 33.2, his platelets are 338. Chemistry; sodium of 135, potassium of 4.2, BUN of 21, creatinine of 1.35. Troponin x1 is negative. Glucose is 114. His urine appears to be normal. He did have a right upper quadrant ultrasound that indicated stool in his colon, but did not indicate any other acute gallbladder pathology. He also had a CT dissection protocol which did not indicate any aneurysm or dissection, however did indicate he has a right middle lobe pneumonia. ASSESSMENT AND PLAN: The patient is an 78-year-old male who presents to the hospital with complaints of shortness of breath and some chest pain. 1. Community-acquired pneumonia. I will start the patient on ceftriaxone and azithromycin for now. 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 I do not think at this time he needs any steroids. He has no wheezing and he has oxygen saturations are at baseline and he is requiring only 2 L. I will continue that. I will also put him on some DuoNeb. 2. Leukocytosis. This could be secondary to his underlying pneumonia. We will continue to monitor. 3. Chest pain. I believe this is atypical in nature. Again, I will trend his troponins. If they are negative, I do not think Cardiology will be consulted. However, given patient's multiple risk factors that would be an appropriate consult; however, at this time, I do not think he requires a Cardiology consult. His left EF was 60% to 65%, which was done in 2017. 4. Mild acute kidney injury. We will continue to monitor. I will start him on some gentle hydration. A BNP was checked, it was 97.1. 5. Deep venous thrombosis prophylaxis. I will put the patient on some sequential compression devices and some subcu heparin. Job ID: [id number]
[2019-02-25 05:09] LABS: #Eosinphils 0.1 thou/uL (0.0-0.7); #Monocytes 0.5 thou/uL (0.11-0.59); #Neutrophils 4.5 thou/uL (1.40-6.50); %Basophils 0.3 % (0.0-1.0); %Eosinophils 1.1 % (0.0-10.0); %Lymphocytes 16.3 % (21.0-51.0); %Monocytes 8.6 % (0.0-10.0); %Neutrophils 73.7 % (42.0-75.0); Hemoglobin 9.7 g/dL (14.0-18.0); Mean Corpuscular HGB CONC 33.6 g/dL (32.0-36.0); Mean Corpuscular Hemoglobin 41.4 pg (27.0-31.0); Mean Platelet Volume 9.2 fL (7.4-10.4); Platelet Count 271 thou/uL (130-400); RBC Distribution Width 22.2 % (11.5-14.5); Red Blood Cell (RBC) Count 2.34 mill/uL (4.70-6.10)
[2019-02-25 05:27] LABS: Anion Gap 10 mmol/L (10-20); BUN (Urea Nitrogen) 16 mg/dL (8.4-25.7); Calc. Creatinine Clearance 64 mL/min (70-130); Calcium 8.8 mg/dL (7.8-10.44); Carbon Dioxide 22 mmol/L (23-31); Chloride 109 mmol/L (98-107); Estimated GFR-MDRD 65; Glucose 87 mg/dL (83-110); Sodium 137 mmol/L (136-145)
[2019-02-25] MEDS ORDERED: Hydroxyurea 500 MG CAP PO SCH (09:00)
[2019-02-25] MEDS: Docusate 100 MG CAP PO SCH (09:15)
[2019-02-25] MEDS: Folic Acid 1 MG TAB PO SCH (09:15)
[2019-02-25] MEDS: Famotidine 20 MG TAB PO SCH ×2 (09:15→21:51)
[2019-02-25] MEDS: Aspirin Chewable 81 MG TAB PO SCH (09:15)
[2019-02-25] MEDS: Heparin 5,000 UNITS/ML VIAL SC SCH ×3 (09:15→21:52)
--- NOTE | 2019-02-25 10:49 | CON ---
DATE OF CONSULTATION: HISTORY OF PRESENT ILLNESS: Fede Carrasquillo is an 78-year-old gentleman who was seen in the ER yesterday after he presented with symptoms of just feeling bad. 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 He has baseline pulmonary fibrosis based on his high resolution CT and his pulmonary function tests which shows severely reduced diffusing capacity. This morning, he denied any coughing. Denied any fever or chills. He said he is feeling somewhat better. PAST MEDICAL HISTORY: Pertinent for coronary artery disease, COPD, hemolytic anemia, and chronic pain. PAST SURGICAL HISTORY: Including abdominal aortic aneurysm repair, foot surgery, knee surgery, previous abdominal issues. SOCIAL HISTORY: Tobacco, quit smoking recently, former smoker a pack a day. HOME MEDICATIONS: Includes; 1. Dulera 2 puffs twice a day. 2. Hydrea 500. 3. Lipitor 40. 4. Tylenol. 5. Zetia 10. 6. Wellbutrin 150. 7. Folic acid. 8. Toprol-XL 25. 9. Aspirin. ALLERGIES: NONE. SOCIAL HISTORY: Unremarkable. FAMILY HISTORY: Unremarkable. REVIEW OF SYSTEMS: Ten-point negative. PHYSICAL EXAMINATION: VITAL SIGNS: O2 saturation is 98% on 2 L, temperature 98, pulse 77, and blood pressure 117/63. CHEST: Minimal crackles. CARDIAC: Normal S1 and S2. No gallops. ABDOMEN: No masses. LABORATORY DATA: White count 6000, H and H 9 and 28, platelet count is normal. His lytes are normal. He had CT dissection protocol done, which showed no evidence of any dissection. He had a chest x-ray which showed chronic fibrosis, slight increased density left lung of unknown significance. IMPRESSION: 1. Underlying pulmonary fibrosis. 2. Doubt he has pneumonia. 3. Autoimmune hemolytic anemia, coronary artery disease, former smoker. 4. Brief course of prednisone. He can be discharged home tomorrow on oral antibiotics. 5. Follow up in the office. Consultation note, 70 minutes, 50% direct patient care. Job ID: [id number]
[2019-02-25] MEDS ORDERED: cefTRIAXone\\ROCEPHIN 1 GM in Sodium Chloride 0.9% 100 ML IVPB SCH (17:00)
[2019-02-25] MEDS: Sodium Chloride 0.9% 1,000 ML IV SCH (17:30)
[2019-02-25] MEDS ORDERED: Azithromycin 500 MG in Sodium Chloride 0.9% 250 ML 250 ML IVPB SCH (18:00)
[2019-02-25] MEDS: Mometasone/Formoterol 120 PUFF INHALER INH SCH (19:24)
[2019-02-25] MEDS: predniSONE 20 MG TAB PO SCH (21:51)
[2019-02-25] MEDS: Atorvastatin Calcium 40 MG TAB PO SCH (21:51)
[2019-02-26] MEDS: Mometasone/Formoterol 120 PUFF INHALER INH SCH (06:44)
[2019-02-26] MEDS ORDERED: Ondansetron PF 4 MG/2 ML Vial IVP PRN (07:15)
[2019-02-26] MEDS ORDERED: Ezetimibe 10 MG TAB PO SCH (09:00)
[2019-02-26] MEDS ORDERED: Hydroxyurea 500 MG CAP PO SCH (09:00)
[2019-02-26] MEDS ORDERED: Ondansetron PF 4 MG/2 ML Vial IVP SCH (09:00)
[2019-02-26] MEDS: predniSONE 20 MG TAB PO SCH (09:38)
[2019-02-26] MEDS: Aspirin Chewable 81 MG TAB PO SCH (09:38)
[2019-02-26] MEDS: Folic Acid 1 MG TAB PO SCH (09:38)
[2019-02-26] MEDS: Docusate 100 MG CAP PO SCH (09:38)
[2019-02-26] MEDS: Famotidine 20 MG TAB PO SCH (09:38)
[2019-02-26] MEDS: Heparin 5,000 UNITS/ML VIAL SC SCH ×2 (09:39→15:30)
[2019-02-26 11:18] LABS: ALT (SGPT) 14 U/L (8-55); AST (SGOT) 15 U/L (5-34); Albumin 3.4 g/dL (3.4-4.8); Alkaline Phosphatase 73 U/L (40-150); Anion Gap 11 mmol/L (10-20); BUN (Urea Nitrogen) 14 mg/dL (8.4-25.7); Bilirubin, Total 0.5 mg/dL (0.2-1.2); Calc. Creatinine Clearance 72 mL/min (70-130); Calcium 8.8 mg/dL (7.8-10.44); Carbon Dioxide 20 mmol/L (23-31); Chloride 109 mmol/L (98-107); Estimated GFR-MDRD 76; Globulin 2.4 g/dL (2.4-3.5); Glucose 119 mg/dL (83-110); Potassium 4.2 mmol/L (3.5-5.1); Protein, Total 5.8 g/dL (5.8-8.1); Sodium 136 mmol/L (136-145)
[2019-02-26 11:37] VITALS: BP 104/56; TEMP 97.7
--- NOTE | 2019-02-26 11:43 | PRG ---
DATE OF SERVICE: 02/26/2019 SUBJECTIVE: This morning, he is better, less short of breath. Multiple complaints still remain including nausea from time to time, but no coughing or no wheezing. OBJECTIVE: VITAL SIGNS: Sats 100% on 2 L, temperature 98, pulse 64, blood pressure 118/56. CHEST: Reveals decreased breath sounds. No wheezing. CARDIAC: Normal S1 and S2. No gallops. ABDOMEN: No masses. ASSESSMENT: 1. Baseline underlying pulmonary fibrosis. 2. Weakness, etiology unclear. 3. Depression. 4. Hemolytic anemia, etiology unclear. PLAN: He can be discharged home on Levaquin 500 once a day for 5 days, prednisone 20 once a day for 5 days. Otherwise, no change in medication. He will be seen in the office next week. Job ID: [id number]
--- NOTE | 2019-02-26 17:31 | PDOC.PN ---
- Subjective Encounter Start Date: 02/25/19 Encounter Start Time: 10:15 Subjective: pt up in bed feels well - Objective Resuscitation Status - Order Detail: 02/24/19 19:33 Resuscitation Status Routine Resuscitation Status: FULL: Full Resuscitation Vital Signs & Weight: Vital Signs (12 hours) Temp Pulse Resp BP Pulse Ox 02/26/19 11:36 97.7 F 62 15 104/56 L 100 02/26/19 08:00 100 02/26/19 07:36 98.0 F 64 15 118/66 100 02/26/19 06:44 72 16 Weight Weight 180 lb I&O: 02/25/19 02/26/19 02/27/19 06:59 06:59 06:59 Intake Total 620 1600 Output Total 625 1725 Balance -5 -125 Result Diagrams: 02/25/19 04:38 02/26/19 10:51 Phys Exam - Physical Examination Neck: no nodes, no JVD, supple, full ROM Respiratory: no wheezing, no rales, no rhonchi, wheezing present, clear to auscultation bilateral Cardiovascular: RRR, no significant murmur, no rub, gallop, irregular Gastrointestinal: soft, non-tender, no distention, positive bowel sounds Dx/Plan (1) Pneumonia Code(s): J18.9 - PNEUMONIA, UNSPECIFIED ORGANISM Status: Acute (2) Pulmonary fibrosis Code(s): J84.10 - PULMONARY FIBROSIS, UNSPECIFIED Status: Acute (3) History of AAA (abdominal aortic aneurysm) repair Code(s): Z98.890 - OTHER SPECIFIED POSTPROCEDURAL STATES Status: Chronic - Plan will continue current tx, steroids per pulmonary -: trops x3 negative * . Review of Systems - Review of Systems ENT: negative: Ear Pain, Ear Discharge, Nose Pain, Nose Discharge, Nose Congestion, Mouth Pain, Mouth Swelling, Throat Pain, Throat Swelling, Other Respiratory: negative: Cough, Dry, Shortness of Breath, Hemoptysis, SOB with Excertion, Pleuritic Pain, Sputum, Wheezing Cardiovascular: negative: chest pain, palpitations, orthopnea, paroxysmal nocturnal dyspnea, edema, light headedness, other - Medications/Allergies Allergies/Adverse Reactions: Allergies Allergy/AdvReac Type Severity Reaction Status Date / Time No Known Drug Allergies Allergy Verified 09/19/17 10:58
--- NOTE | 2019-02-26 19:33 | DIS ---
DATE OF ADMISSION: 02/24/2019 DATE OF DISCHARGE: 02/26/2019 DISCHARGE DIAGNOSES: As of the followin. Pneumonia. 2. History of pulmonary fibrosis. 3. History of thrombocytosis. 4. History of aortic aneurysm with repair. 5. Coronary artery disease. HOSPITAL COURSE: The patient is an 78-year-old male, who initially presented to the hospital with shortness of breath and generalized weakness. Please refer to my H and P for further details. The patient did have a CT dissection protocol, which indicated a right middle lobe pneumonia. He also had some nausea at this time. Abdominal ultrasound did indicate a normal gallbladder. The patient at this time did have a CMP checked, which was completely normal. Troponin x3 was completely normal. He did have a mild BREONNA, which improved with gentle hydration. The patient continued to improve throughout the hospital stay. He was seen by Pulmonary, who added some steroids. The patient feels stable and will be discharged home. PHYSICAL EXAMINATION: VITAL SIGNS: Temperature 97.7, pulse 62, respirations 15, respirations 100% on 2 L, and blood pressure 104/56. GENERAL: He is awake, alert, and oriented x3. Does not appear in distress. CV: S1 and S2 present. No murmurs, rubs, or gallops. ABDOMEN: Soft and nontender. Bowel sounds are present. EXTREMITIES: No edema. Pedal pulses are present x2. MEDICATIONS: His medications going to be on: 1. Levaquin 500 mg daily for next 8 days. 2. Pepcid 20 mg b.i.d. 3. Aspirin 81 mg daily. 4. Metoprolol 25 mg daily. 5. Folic acid one p.o. daily. 6. He is going to be on atorvastatin 40 mg at bedtime. 7. Hydrea 500 mg as directed. 8. He is going to be on Dulera 2 puffs daily. 9. He was also put on prednisone 20 mg daily for 5 days. DISCHARGE INSTRUCTIONS: Again, the patient will be discharged home. I did tell the that if he starts having significant nausea, bring him back to the ER. We will take him to his primary, however the gallbladder appeared stable. He was able to tolerate his meals while he was in the hospital. Job ID: [id number]
--- NOTE | 2019-02-27 10:12 | PQF ---
CLINICAL DOCUMENTATION IMPROVEMENT CLARIFICATION FORM: ICD-10 Updated PLEASE DO AN ADDENDUM TO THE PROGRESS NOTE WITH ANY DOCUMENTATION UPDATES OR ADDITIONS AND CARRY THROUGH TO DC SUMMARY. THANK YOU. DATE: 02/27/19 ATTN : DR. OLVERA Please exercise your independent, professional judgment in responding to the clarification form. Clinical indicators are provided on the bottom of this form for your review Please check appropriate box(s): [ ] Acute Respiratory Failure: [ ] with Hypoxia[ ] with Hypercapnia [ ] Acute On Chronic Respiratory Failure: [ ] with Hypoxia [ ] with Hypercapnia [ ] Chronic Respiratory Failure only [ ] with Hypoxia [ ] with Hypercapnia [ ] Other diagnosis [ ] Unable to determine In addition, please specify: Present on Admission (POA): [ ] Yes [ ] No [ ] Unable to determine For continuity of documentation, please document condition throughout progress notes and discharge summary. Thank You. CLINICAL INDICATORS - SIGNS / SYMPTOMS / LABS ER NOTE: "PT IS ON HOME O2 ON 2L NC, TYPICALLY HAVING O2 SATS IN THE HIGH 80'S" PULSE 108 RISKS: PNEUMONIA H/O PULMONARY FIBROSIS TREATMENT: DUONEBS (02/24-02/26) DULERA (02/25-02/26) PREDISONE 02/25-02/26) SUPPLEMENTAL OXYGEN CHEST XRAY (This form is maintained as a part of the permanent medical record) 2014 [employer]. All Rights Reserved WHIT [email or web address] Office: [phone] [facility]
== END 2019-02-26 15:20 | disposition home or self-care (01) | DRG 194 ==
LOC: ERS 14:26 → 2NO 20:15
PROVIDERS: ADMIT Internal Medicine; ATTEND Internal Medicine
DX: J18.9 Pneumonia, unspecified organism (principal); J44.0 Chronic obstructive pulmonary disease with (acute) lower respiratory infection; N17.9 Acute kidney failure, unspecified; D47.3 Essential (hemorrhagic) thrombocythemia; I25.10 Atherosclerotic heart disease of native coronary artery without angina pectoris; D64.9 Anemia, unspecified; I73.00 Raynaud's syndrome without gangrene; E78.00 Pure hypercholesterolemia, unspecified; J84.10 Pulmonary fibrosis, unspecified; Z95.5 Presence of coronary angioplasty implant and graft; Z87.891 Personal history of nicotine dependence; Z79.899 Other long term (current) drug therapy; Z79.82 Long term (current) use of aspirin; Z79.51 Long term (current) use of inhaled steroids
CPT/HCPCS: 36415; 71045; 71275; 76705; 80048; 80053; 81003; 83690; 83880; 84484; 85025; 87040; 87070; 87086; 87205; 93005; 96361; 96365; J0456; J0696; J1644; J2405; J3490; J7050; J7512; Q9966

== ENCOUNTER 2019-05-09 15:54 | Emergency (ER) | payer MEDICARE ==
--- NOTE | 2019-05-09 16:44 | RAD ---
RIGHT KNEE FOUR VIEWS: 05/09/19 HISTORY: Fall from standing. Right knee pain. The bones are demineralized. There is bony synostosis across the tibiofibular joint. There is an esse ntially nondisplaced fracture extending through the mid to slightly inferior aspect of the patella. T here is some joint effusion associated with this. IMPRESSION: Nondisplaced patellar fracture. POS: PELON
[2019-05-09] MEDS ORDERED: HYDROcodone/Acetaminophen 5/325 mg Tablet ONE (17:10)
== END 2019-05-09 17:25 | disposition home or self-care (01) ==
LOC: SCSER 15:54
DX: S82.001A Unspecified fracture of right patella, initial encounter for closed fracture (principal); I25.2 Old myocardial infarction; E78.5 Hyperlipidemia, unspecified; F03.90 Unspecified dementia, unspecified severity, without behavioral disturbance, psychotic disturbance, mood disturbance, and anxiety; F41.9 Anxiety disorder, unspecified; I50.9 Heart failure, unspecified; F32.9 Major depressive disorder, single episode, unspecified; F17.210 Nicotine dependence, cigarettes, uncomplicated; Z79.82 Long term (current) use of aspirin; Z79.899 Other long term (current) drug therapy; W18.30XA Fall on same level, unspecified, initial encounter

== ENCOUNTER 2019-06-30 11:06 | Inpatient (IN) | payer MEDICARE ==
--- NOTE | 2019-06-30 11:26 | RAD ---
EXAM: CHEST ONE VIEW HISTORY: Shortness of breath. COMPARISON: 02/24/2019 FINDINGS: The cardiac silhouette and pulmonary vasculature is within normal limits. Increased interstitial dens ities are again seen within the lungs bilaterally related to mild chronic lung changes. However, there has been an interval increase in the interstitial opacities within the lungs bilaterally with a lveolar opacity seen in the left midlung zone and left lung base which were not appreciated on prior study. Findings may be related to acute infectious process superimposed on chronic lung changes . No obvious pleural effusion is seen. The most inferior aspect right lateral costophrenic angle is excluded from view. The osseous structures are intact. Vascular calcic lesions are seen in the thorac ic aorta. IMPRESSION: Increase in interstitial densities within the lungs bilaterally with alveolar opacities seen on the l eft. Findings are most likely attributable to either asymmetric pulmonary edema versus infectious process superimposed on chronic lung changes.
[2019-06-30 11:34] LABS: Hemoglobin 9.6 g/dL (14.0-18.0); Mean Corpuscular Hemoglobin 40.8 pg (27.0-31.0); Mean Platelet Volume 9.1 fL (7.4-10.4); Platelet Count 570 thou/uL (130-400); RBC Distribution Width 19.8 % (11.5-14.5); Red Blood Cell (RBC) Count 2.36 mill/uL (4.70-6.10); White Blood Cell (WBC) Count 12.5 thou/uL (4.8-10.8)
[2019-06-30] MEDS ORDERED: Acetaminophen 500 MG TAB ONE (11:46)
[2019-06-30 11:49] LABS: Band 5 % (5-11); Lymphocytes 1 % (21-51); MDiff Complete? YES; Macrocytosis MODERATE=16-30 cells (100X) (0-5/hpf); Monocytes 3 % (0-10); Neutrophil 91 % (42-75); Platelet Morphology Comment Appears Increased
[2019-06-30 11:50] LABS: Phosphorus 2.8 mg/dL (2.3-4.7)
[2019-06-30 11:52] LABS: ALT (SGPT) 18 U/L (8-55); AST (SGOT) 25 U/L (5-34); Alkaline Phosphatase 104 U/L (40-110); Anion Gap 15 mmol/L (10-20); BUN (Urea Nitrogen) 22 mg/dL (8.4-25.7); Bilirubin, Total 0.8 mg/dL (0.2-1.2); Calc. Creatinine Clearance 0 mL/min (70-130); Calcium 8.7 mg/dL (7.8-10.44); Carbon Dioxide 22 mmol/L (23-31); Chloride 103 mmol/L (98-107); Estimated GFR-MDRD 64; Glucose 102 mg/dL (83-110); Magnesium 1.9 mg/dL (1.6-2.6); Potassium 4.5 mmol/L (3.5-5.1); Sodium 135 mmol/L (136-145)
[2019-06-30] MEDS ORDERED: cefTRIAXone\\ROCEPHIN 2 GM VIAL ONE (11:57)
[2019-06-30] MEDS ORDERED: Azithromycin 500 MG VIAL ONE (11:57)
[2019-06-30] MEDS ORDERED: methylPREDNISolone Sod Succ/PF 125 MG/2 ML VIAL ONE (11:57)
[2019-06-30] MEDS ORDERED: ISOVUE-370 76%-LOCM 1 ML ONE (12:00)
--- NOTE | 2019-06-30 12:19 | CT ---
CTA Angio Chest W WO Con 06/30/2019 11:26 AM Indication: Dyspnea and sepsis Technique: Multiple CTA images were obtained of the thorax with IV contrast. 3-D rendering: MIP josue nstructed images were created and reviewed. Comparison: CT high-resolution evaluation dated May 21, 2018 Findings: Pulmonary arteries: No central or segmental pulmonary embolus is evident. Heart and Aorta: There are coronary artery and thoracic aortic calcifications. Mediastinum:There are mildly prominent lymph nodes within the mediastinum. One of the largest is seen within the left paratracheal region measuring 1.3 cm. Lungs:There are patchy areas of peripheral airspace consolidation suspicious for multifocal pneumonia . This is superimposed on severe emphysema and prominent peripheral interstitial fibrotic change. Pleural space: Clear. Upper Abdomen: No acute abnormality. Osseous Structures: New age-indeterminate superior endplate compression fracture of L1. This is new from a comparison CTA aortic dissection protocol dated February 24, 2019. There is scattered degenerative and osteoarthritic change present. There is diffuse osteopenia. Soft tissues:No abnormality. Other findings:None. Impression: 1. No central or segmental pulmonary embolus. 2. Peripheral areas of airspace opacity and consolidation suspicious for multifocal pneumonia. This i s superimposed on severe chronic lung disease. 3. Mild suspected reactive lymphadenopathy within the mediastinum. 4. Age indeterminate interval superior endplate compression abnormality of L1.
[2019-06-30 12:53] LABS: Bacteria/HPF None Seen HPF (None Seen); Bilirubin Negative (Negative); Blood, Urine Negative (Negative); Clarity Clear (Clear); Glucose, Urine (Dipstick) Normal (Negative); Leukocyte Negative Leu/uL (Negative); Mucous/LPF Rare LPF (<2+); Nitrite Negative (Negative); Protein, Urine (Dipstick) 30 mg/dL (Neg-Trace); RBC/HPF 0-3 HPF (0-3); Squamous Epithelial None Seen HPF (0-3); Urobilinogen Normal mg/dL (Less than 2); WBC/HPF 0-3 HPF (0-3)
[2019-06-30] MEDS ORDERED: Acetaminophen 325 MG TAB PO PRN (13:42)
[2019-06-30] MEDS ORDERED: Guaifenesin DM 100-10/5 ML UDCUP PO PRN (13:42)
[2019-06-30] MEDS ORDERED: Senokot S 8.6-50 MG TAB PO PRN (13:42)
[2019-06-30] MEDS ORDERED: Bisacodyl 10 MG SUPP PR PRN (13:42)
[2019-06-30] MEDS ORDERED: methylPREDNISolone Sod Succ 40 MG VIAL IVP SCH (14:00)
[2019-06-30] MEDS ORDERED: Levofloxacin 750 mg/D5W 500 MG in Premix Bag 1 BAG IVPB SCH (14:00)
--- NOTE | 2019-06-30 14:10 | HP ---
REASON FOR ADMISSION: Sepsis, pneumonia, interstitial lung disease and flare- up. HISTORY OF PRESENTING ILLNESS: Please note. Majority of this history is obtained by talking to the patient's as the patient has underlying dementia and does not know exactly why he is here in the hospital. Per , he has not been eating, drinking from last 3 days. He is also coughing up yellow green sputum. He had right knee patellar fracture in the last 4 weeks or so. For 3 weeks, he was in a wheelchair and was told not to bear weight. But from last 1 week, he has not been able to walk. He had physical therapy and occupational therapy for the initial 3 weeks, but then the services stopped after that. He developed a fever of 102 degrees this morning. He got weaker to the point that he could not even get up by himself. The got concerned and brought him to the emergency room. On arrival here, the patient had confirmed temperature of 102 with blood pressure of 96/70 on arrival. No complaints of chest pain or palpitation. 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 CURRENT MEDICATIONS: The patient is on; 1. Folic acid 1 mg daily. 2. Lyrica 200 mg p.o. at bedtime. 3. Hydroxyurea 1000 mg on even days and 500 mg on odd days. 4. Wellbutrin sustained release 150 mg daily. 5. Aspirin 81 mg daily. 6. Tylenol OM 2 tabs at bedtime. 7. Bupropion sustained release 150 mg daily. 8. Toprol-XL 12.5 mg daily. 9. Atorvastatin 40 mg daily. 10. Colace 100 mg at bedtime. 11. Dulera inhaler 2 puffs daily. ALLERGIES: NO KNOWN DRUG ALLERGIES. PERSONAL HISTORY: Quit smoking 3 years back prior to which had smoked 1 pack a day for almost 50 years. Does not abuse alcohol or drugs. Lives with his . FAMILY HISTORY: Mother at the age of 87 years. She has had history of heart failure and stroke. Father at the age of 79 years. He has had history of aortic aneurysm. REVIEW OF SYSTEMS: CONSTITUTIONAL: Negative for weight loss or gain, ability to conduct usual activities. SKIN: Negative for rash, itching. EYES: Negative for double vision, pain. ENT/MOUTH: Negative for nose bleeding, neck stiffness, pain, tenderness. CARDIOVASCULAR: Negative for palpitations, dyspnea on exertion, orthopnea. RESPIRATORY: Negative for shortness of breath, wheezing, cough, hemoptysis, fever or night sweats. GASTROINTESTINAL: Negative for poor appetite, abdominal pain, heartburn, nausea , vomiting, constipation, or diarrhea. GENITOURINARY: Negative for urgency, frequency, dysuria, nocturia. MUSCULOSKELETAL: Negative for pain, swelling. NEUROLOGIC/PSYCHIATRIC: Negative for anxiety, depression. ALLERGY/IMMUNOLOGIC: Negative for skin rash, bleeding tendency. CODE STATUS: The patient is do not attempt to resuscitate. This was confirmed with the patient's at bedside and power of document review attorney. PHYSICAL EXAMINATION: GENERAL: The patient is an 78-year-old male, who is currently not in any acute distress. VITAL SIGNS: Blood pressure 96/70 on arrival, currently 106/74; pulse 90 per minute; respiratory rate 22 per minute; temperature 102 degrees on arrival; and saturating 92% on 4 L nasal cannula. NECK: Supple. No elevated JVD. HEENT: Eyes; extraocular muscles intact. Pupils reacting to light. Oral cavity, mucous membranes are dry. No exudates or congestion. CARDIOVASCULAR SYSTEM: S1 and S2 heard, regular rhythm. RESPIRATORY SYSTEM: Air entry 1+ bilateral. Coarse rales plus bilateral. ABDOMEN: Soft. Bowel sounds heard. No tenderness, rigidity, or guarding. EXTREMITIES: Right knee is in a knee immobilizer/brace. No peripheral edema or calf tenderness. VASCULAR SYSTEM: Peripheral pulses 1+ bilateral. No ischemic ulcerations or gangrene. CENTRAL NERVOUS SYSTEM: No gross focal deficits noted. The patient is alert, awake, but is not fully oriented. PSYCHIATRIC SYSTEM: The patient's mood is euthymic. No hallucinations or delusions. DIAGNOSTIC DATA: Influenza A and B antigens are negative. CT angio of brain done shows no PE. There are peripheral areas of airspace opacity that is suspicious for multifocal pneumonia. He has underlying severe chronic lung disease. L1 compression fracture, which is age indeterminate. BNP is 117. BUN 22, creatinine 1.1, serum glucose 102, phosphorus 2.8, and magnesium 1.9. Liver enzymes within normal limits. Troponin x1 negative. Albumin is 3.0. Serum bicarb 22. White count of 12, H and H of 9 and 29, platelet count 570, MCV is 124 with 91% neutrophils. EKG done shows sinus tach at 110 beats per minute. There is RBBB seen, Q-wave seen in leads II, III, aVF and nonspecific ST-T wave changes. CLINICAL IMPRESSION AND PLAN: The patient will be admitted to medical floor for sepsis, pneumonia with interstitial lung disease with flare-up. He is also deconditioned from last 4 weeks after sustaining patellar fracture per . He will obtain PT and OT evaluations. Blood and sputum cultures will be obtained. He will be on cefepime and Levaquin. We will consult Dr. Squires, his explosive ordnance manager. He will be on DuoNeb q.6 hourly, Solu-Medrol 20 mg IV q.8 hourly. We will continue his home dose of aspirin, Lipitor, bupropion, Colace, Zetia, hydroxyurea, Toprol-XL, Dulera inhaler, and Lyrica as before. He will be gently hydrated with normal saline at 100 mL per hour for a total of 2 L. He has received total of 2 L normal saline bolus in the ER. We will closely monitor him on medical floor. Job ID: [id number] [facility]
[2019-06-30 16:09] VITALS: BMI 25.9
[2019-06-30] MEDS: Ezetimibe 10 MG TAB PO SCH (16:24)
[2019-06-30] MEDS: methylPREDNISolone Sod Succ 40 MG VIAL IVP SCH (17:28)
[2019-06-30] MEDS: Benzonatate 100 MG CAP PO SCH ×2 (17:28→21:16)
[2019-06-30] MEDS: Sodium Chloride 0.9% 1,000 ML IV SCH (17:29)
[2019-06-30] MEDS: Levofloxacin 750 mg/D5W 500 MG in Premix Bag 1 BAG IVPB SCH (17:38)
--- NOTE | 2019-06-30 20:48 | CON ---
DATE OF CONSULTATION: HISTORY OF PRESENT ILLNESS: Fede Carrasquillo is an 78-year-old gentleman who is well known to me, who has a history of pulmonary fibrosis, end stage, who was not able to tolerate significant nausea, vomiting, and diarrhea. He now presents to the hospital with marked weakness, shortness of breath and cough, yellow sputum production. He recently sustained a fall and apparently fractured his patella. He has a brace placed in by a local orthopedic surgeon. Since then, he has lost considerable weight. Poor appetite according to his . An x-ray was taken which shows peripheral infiltrates. CAT scan shows extensive pulmonary fibrosis. PAST MEDICAL HISTORY: Diastolic dysfunction, coronary artery disease, hemolytic anemia, thrombocytopenia, high cholesterol, spinal stenosis, recent dementia, end-stage fibrosis, dementia. PAST SURGICAL HISTORY: Left knee, right foot, abdominal aortic repair, partial colectomy, cardiac stents, ablation. SOCIAL HISTORY: Former smoker, quit smoking 10 years ago. No alcohol abuse. HOME MEDICATIONS: 1. Prednisone 10. 2. Lyrica 200. 3. Dulera twice a day. 4. Metoprolol 25. 5. Hydroxyurea 500. 6. Folic acid. 7. Pepcid. 8. Zetia. 9. Wellbutrin 150. 10. Lipitor 40. ALLERGIES: NONE. REVIEW OF SYSTEMS: Otherwise 10-point negative. PHYSICAL EXAMINATION: GENERAL: Awake, alert, and responsive, logically. Moves all 4 extremities. He is in mild distress. VITAL SIGNS: O2 saturations 100% on 2 L, respirations 15, temperature 97, pulse 62, blood pressure 104/56. CHEST: crackles in the entire lung. CARDIAC: Normal S1, S2. No gallops. ABDOMEN: No masses. LABORATORY DATA: White count 12,000, H and H 9 and 29, platelet count normal, 91 segs, 5 bands. Lytes are normal. BNP is normal. Urine is negative. IMPRESSION: 1. Respiratory failure secondary to extensive pulmonary fibrosis with superimposed bronchopneumonia. 2. Recent fracture, right patella. 3. History of hemolytic anemia. I agree with present treatment, steroids, neb treatments, supportive care. We will follow. Consultation note, 70 minutes, 50% direct patient care. Job ID: [id number]
[2019-06-30] MEDS ORDERED: Acetaminophen 500 MG TAB PO PRN (21:00)
[2019-06-30] MEDS ORDERED: diphenhydrAMINE 25 MG CAP PO SCH (21:00)
[2019-06-30] MEDS: Cefepime 1 GM in Sodium Chloride 0.9% 100 ML IVPB SCH (21:12)
[2019-06-30] MEDS: Pregabalin 50 MG CAP PO SCH (21:16)
[2019-06-30] MEDS: guaiFENesin ER 600 MG TAB PO SCH (21:17)
[2019-06-30] MEDS: Atorvastatin Calcium 40 MG TAB PO SCH (21:18)
[2019-06-30] MEDS: Docusate 100 MG CAP PO SCH (21:18)
[2019-06-30] MEDS: Famotidine 20 MG TAB PO SCH (21:18)
[2019-07-01] MEDS: Sodium Chloride 0.9% 1,000 ML IV SCH (00:33)
[2019-07-01] MEDS: methylPREDNISolone Sod Succ 40 MG VIAL IVP SCH ×3 (00:33→16:45)
[2019-07-01 06:28] LABS: Band 6 % (5-11); Hemoglobin 8.2 g/dL (14.0-18.0); Lymphocytes 2 % (21-51); MDiff Complete? YES; Mean Corpuscular HGB CONC 32.3 g/dL (32.0-36.0); Mean Corpuscular Hemoglobin 40.3 pg (27.0-31.0); Monocytes 4 % (0-10); Neutrophil 87 % (42-75); Platelet Count 497 thou/uL (130-400); Platelet Morphology Comment Appears Increased; RBC Distribution Width 19.6 % (11.5-14.5); Red Blood Cell (RBC) Count 2.03 mill/uL (4.70-6.10); White Blood Cell (WBC) Count 9.4 thou/uL (4.8-10.8)
[2019-07-01 06:29] LABS: Anion Gap 13 mmol/L (10-20); BUN (Urea Nitrogen) 21 mg/dL (8.4-25.7); Calc. Creatinine Clearance 82 mL/min (70-130); Calcium 8.2 mg/dL (7.8-10.44); Carbon Dioxide 17 mmol/L (23-31); Chloride 109 mmol/L (98-107); Estimated GFR-MDRD 88; Glucose 131 mg/dL (83-110); Potassium 3.9 mmol/L (3.5-5.1); Sodium 135 mmol/L (136-145)
[2019-07-01] MEDS: Mometasone/Formoterol 120 PUFF INHALER INH SCH (07:54)
[2019-07-01] MEDS: Folic Acid 1 MG TAB PO SCH (08:34)
[2019-07-01] MEDS: Benzonatate 100 MG CAP PO SCH ×3 (08:34→20:15)
[2019-07-01] MEDS: guaiFENesin ER 600 MG TAB PO SCH ×2 (08:34→20:16)
[2019-07-01] MEDS: Aspirin Chewable 81 MG TAB PO SCH (08:35)
[2019-07-01] MEDS: Famotidine 20 MG TAB PO SCH ×2 (08:35→20:16)
[2019-07-01] MEDS: Cefepime 1 GM in Sodium Chloride 0.9% 100 ML IVPB SCH ×2 (08:36→20:15)
[2019-07-01] MEDS: Enoxaparin Sodium 40 MG/0.4 ML SYRINGE SC SCH (08:36)
[2019-07-01] MEDS: Hydroxyurea 500 MG CAP PO SCH (08:38)
[2019-07-01] MEDS: Bupropion 150 MG SR TAB PO SCH (09:36)
[2019-07-01] MEDS: Lactated Ringer's 1,000 ML IV SCH ×2 (09:37→19:58)
--- NOTE | 2019-07-01 10:21 | PRG ---
DATE OF SERVICE: 07/01/2019 SUBJECTIVE: This morning, the patient is still weak, still coughing some yellow sputum. OBJECTIVE: VITAL SIGNS: Temperature 97, pulse 70, respirations 22, saturations are 98% on supplemental oxygen, and blood pressure 90/60. CHEST: Decreased breath sounds. No wheezing. Extensive crackles. CARDIAC: Normal S1 and S2. No gallops. ABDOMEN: Soft. LABORATORY DATA: H and H 8 and 25 and platelet count 497. Lytes are normal. ASSESSMENT AND PLAN: Progressive pulmonary fibrosis with possibly superimposed pneumonia. Await cultures. Would deescalate antibiotics thereafter. Steroids, supportive care, and PT. Prognosis is guarded. Job ID: [id number]
--- NOTE | 2019-07-01 14:20 | PDOC.HOSPP ---
- Subjective Encounter Date: 07/01/19 Encounter Time: 11:17 Subjective: 78 y/o male with chronic respiratory failure 2/2 ILD on home 02, CAD, atrial flutter and others admitted due to worsening productive cough, fever associated with weakness and poor oral intake. was hypotensive requiring fluid resuscitation. Feeling better. still coughing. - Objective Vital Signs & Weight: Vital Signs (12 hours) Temp Pulse Pulse Resp BP BP Pulse Ox 07/01/19 12:52 94 16 92 L 07/01/19 12:00 98.3 F 95 20 98/63 93 L 07/01/19 10:23 95 101/64 07/01/19 08:00 97.5 F L 99 22 H 98/60 98 07/01/19 07:59 88 L 07/01/19 07:54 99 20 88 L 07/01/19 07:50 99 20 88 L 07/01/19 04:00 98.1 F 92 18 96/61 92 L Pulse Ox 07/01/19 12:52 07/01/19 12:00 07/01/19 10:23 93 L 07/01/19 08:00 07/01/19 07:59 07/01/19 07:54 07/01/19 07:50 07/01/19 04:00 Weight Weight 181 lb 3 oz I&O: 06/30/19 07/01/19 07/02/19 06:59 06:59 06:59 Intake Total 1740 200 Balance 1740 200 Result Diagrams: 07/01/19 05:29 07/01/19 05:29 Hospitalist ROS - Medication Medications: Active Medications Generic Name Dose Route Start Last Admin Trade Name Freq PRN Reason Stop Dose Admin Albuterol/Ipratropium 3 ml 06/30/19 19:00 07/01/19 12:52 Duoneb NEB 3 ml [id number] REYES Administration Aspirin 81 mg 07/01/19 09:00 07/01/19 08:35 Aspirin Chewable PO 81 mg DAILY REYES Administration Atorvastatin Calcium 40 mg 06/30/19 21:00 06/30/19 21:18 Lipitor PO 40 mg HS REYES Administration Benzonatate 100 mg 06/30/19 15:00 07/01/19 08:34 Tessalon PO 100 mg TID REYES Administration Bupropion HCl 150 mg 07/01/19 09:00 07/01/19 09:36 Wellbutrin Sr PO 150 mg DAILY REYES Administration Docusate Sodium 100 mg 06/30/19 21:00 06/30/19 21:18 Colace PO 100 mg HS REYES Administration Ezetimibe 10 mg 06/30/19 13:45 06/30/19 16:24 Zetia PO Not Given Q2D REYES Enoxaparin Sodium 40 mg 07/01/19 09:00 07/01/19 08:36 Lovenox SC 40 mg 0900 REYES Administration Famotidine 20 mg 06/30/19 21:00 07/01/19 08:35 Pepcid PO 20 mg BID REYES Administration Folic Acid 1 mg 07/01/19 09:00 07/01/19 08:34 Folvite PO 1 mg DAILY REYES Administration Guaifenesin 1,200 mg 06/30/19 21:00 07/01/19 08:34 Mucinex PO 1,200 mg Q12HR REYES Administration Hydroxyurea 1,000 mg 07/01/19 09:00 07/01/19 08:38 Hydrea PO 1,000 mg Q2DAYS REYES Administration Cefepime HCl 1 gm/ Sodium 100 mls @ 200 mls/hr 06/30/19 21:00 07/01/19 08:36 Chloride IVPB 100 mls Q12HR REYES Administration Levofloxacin 500 mg/ Device 100 mls @ 100 mls/hr 06/30/19 18:00 06/30/19 17: 38 IVPB 100 mls 1800 REYES Administration Lactated Ringer's 1,000 mls @ 100 mls/hr 07/01/19 09:00 07/01/19 09:37 Lactated Ringer's IV 1,000 mls .Q10H REYES Administration Methylprednisolone Sodium Succinate 40 mg 06/30/19 17:00 07/01/19 09:52 Solu-Medrol IVP 40 mg 0100,0900,1700 REYES Administration Metoprolol Succinate 25 mg 07/01/19 09:00 07/01/19 08:44 Toprol Xl PO Not Given DAILY [facility] Mometasone Furoate/Formoterol Fumar 2 puff 07/01/19 07:00 07/01/19 07:54 Dulera 200 Mcg/5 Mcg Inhaler INH 2 puff DAILY-RT REYES Administration Pregabalin 200 mg 06/30/19 21:00 06/30/19 21:16 Lyrica PO 200 mg HS REYES Administration - Exam General Appearance: awake alert Eye: anicteric sclera ENT: normocephalic atraumatic Neck: symmetric, no JVD Heart: RRR Respiratory: normal chest expansion Respiratory - other findings: fair air entry with bilaterall scattered fine crackles. no rhonchi Gastrointestinal: soft, non-tender, non-distended, normal bowel sounds Extremities: no cyanosis, no edema Neurological: cranial nerve grossly intact Psychiatric: normal affect, A&O x 3 Hosp A/P (1) Severe sepsis Code(s): A41.9 - SEPSIS, UNSPECIFIED ORGANISM; R65.20 - SEVERE SEPSIS WITHOUT SEPTIC SHOCK Status: Acute (2) Bronchopneumonia Code(s): J18.0 - BRONCHOPNEUMONIA, UNSPECIFIED ORGANISM Status: Acute (3) Metabolic acidosis Code(s): E87.2 - ACIDOSIS Status: Acute (4) Elevated troponin Code(s): R74.8 - ABNORMAL LEVELS OF OTHER SERUM ENZYMES Status: Acute (5) Pulmonary fibrosis Code(s): J84.10 - PULMONARY FIBROSIS, UNSPECIFIED Status: Acute (6) COPD (chronic obstructive pulmonary disease) Status: Chronic (7) Hypotension Status: Chronic Qualifiers: (8) Moderate mitral regurgitation Code(s): I34.0 - NONRHEUMATIC MITRAL (VALVE) INSUFFICIENCY Status: Chronic (9) BREONNA (acute kidney injury) Code(s): N17.9 - ACUTE KIDNEY FAILURE, UNSPECIFIED Status: Resolved (10) Acute on chronic respiratory failure Code(s): J96.20 - ACUTE AND CHR RESP FAILURE, UNSP W HYPOXIA OR HYPERCAPNIA Status: Acute (11) Acute on chronic anemia Code(s): D64.9 - ANEMIA, UNSPECIFIED Status: Acute - Plan Continue broad spectrum antibiotics and steroid. Continue bronchodilators. IVF therapy to continue. Await cultures. Oxygen supplementation as needed Substitute NS with LR due to hyperchloremic acidosis Follow renal function and H/H
[2019-07-01] MEDS: Levofloxacin 750 mg/D5W 500 MG in Premix Bag 1 BAG IVPB SCH (17:05)
[2019-07-01] MEDS: Acetaminophen 500 MG TAB PO SCH (20:15)
[2019-07-01] MEDS: Docusate 100 MG CAP PO SCH (20:16)
[2019-07-01] MEDS: diphenhydrAMINE 25 MG CAP PO SCH (20:16)
[2019-07-01] MEDS: Pregabalin 50 MG CAP PO SCH (20:16)
--- NOTE | 2019-07-01 21:11 | RAD ---
EXAM: Single view of the chest HISTORY: Shortness of breath and crackles COMPARISON: 06/30/2019 FINDINGS: Single view of the chest shows a normal sized cardiomediastinal silhouette. Stable chronic interstitial lung disease is seen. There is no evidence of consolidation, mass, or pleural effusion. The bones are unremarkable. IMPRESSION: Chronic interstitial lung disease without evidence of acute cardiopulmonary disease
[2019-07-01] MEDS: Atorvastatin Calcium 40 MG TAB PO SCH (21:36)
[2019-07-01] MEDS ORDERED: methylPREDNISolone Sod Succ 40 MG VIAL IVP SCH (21:45)
[2019-07-02] MEDS: methylPREDNISolone Sod Succ 40 MG VIAL IVP SCH ×2 (01:13→08:53)
[2019-07-02] MEDS: Mometasone/Formoterol 120 PUFF INHALER INH SCH (07:23)
[2019-07-02] MEDS: Benzonatate 100 MG CAP PO SCH ×3 (08:49→20:28)
[2019-07-02] MEDS: Enoxaparin Sodium 40 MG/0.4 ML SYRINGE SC SCH (08:51)
[2019-07-02] MEDS: Famotidine 20 MG TAB PO SCH ×2 (08:51→20:23)
[2019-07-02] MEDS: Folic Acid 1 MG TAB PO SCH (08:52)
[2019-07-02] MEDS: guaiFENesin ER 600 MG TAB PO SCH ×2 (08:52→20:23)
[2019-07-02] MEDS: Aspirin Chewable 81 MG TAB PO SCH (08:52)
[2019-07-02] MEDS: Bupropion 150 MG SR TAB PO SCH (09:00)
[2019-07-02] MEDS ORDERED: Hydroxyurea 500 MG CAP PO SCH (09:00)
[2019-07-02] MEDS: Hydroxyurea 500 MG CAP PO SCH (09:00)
[2019-07-02] MEDS ORDERED: Cefepime 1 GM in Sodium Chloride 0.9% 100 ML IVPB SCH (09:00)
--- NOTE | 2019-07-02 09:42 | PRG ---
DATE OF SERVICE: 07/02/2019 SUBJECTIVE: Fede Kiran Carrasquillo appears to be somewhat more confused this morning. Apparently, he is not keeping his mask on. They have put him on high-flow this morning. OBJECTIVE: VITAL SIGNS: Sats are 90, temperature 97, pulse 108, blood pressure 108/66. X-ray was done on last night, which shows extensive bilateral peripheral reticulonodular infiltrates. CHEST: Reveals extensive rhonchi and crackles. CARDIAC: Normal S1 and S2. No gallops. ABDOMEN: No mass. IMPRESSION: Worsening pulmonary fibrosis with possibly superimposed infection and pneumonia. Switch over to oral prednisone, antibiotics. Prognosis is grave. Palliative Care has been consulted. He is still a DNR. Discussed with his at length. Job ID: [id number]
--- NOTE | 2019-07-02 13:15 | PDOC.HOSPP ---
- Subjective Encounter Date: 07/02/19 Encounter Time: 10:13 Subjective: 78 y/o male with chronic respiratory failure 2/2 ILD on home 02, CAD, atrial flutter and others admitted due to worsening productive cough, fever associated with weakness and poor oral intake. Was hypotensive on admission requiring fluid resuscitation. Now on high flow oxygen. - Objective Vital Signs & Weight: Vital Signs (12 hours) Temp Pulse Resp BP BP Pulse Ox 07/02/19 10:12 95 07/02/19 10:06 102 H 20 95 07/02/19 08:00 97.5 F L 108 H 22 H 108/66 94 L 07/02/19 07:50 95 07/02/19 07:25 93 L 07/02/19 07:24 100 20 93 L 07/02/19 05:30 97.6 F 99 16 118/75 88 L 07/02/19 01:47 94 18 91 L Weight Weight 181 lb 3 oz I&O: 07/01/19 07/02/19 07/03/19 06:59 06:59 06:59 Intake Total 1740 3090 Output Total 800 Balance 1740 2290 Result Diagrams: 07/01/19 05:29 07/01/19 05:29 Hospitalist ROS - Medication Medications: Active Medications Generic Name Dose Route Start Last Admin Trade Name Freq PRN Reason Stop Dose Admin Acetaminophen 650 mg 06/30/19 13:42 07/02/19 08:51 Tylenol PO 650 mg Q4H PRN Administration Headache/Fever/Mild Pain (1-3) Acetaminophen 1,000 mg 07/01/19 21:00 07/01/19 20:15 Tylenol PO 1,000 mg HS REYES Administration Albuterol/Ipratropium 3 ml 07/01/19 22:30 07/02/19 10:06 Duoneb NEB 3 ml [id number] REYES Administration Aspirin 81 mg 07/01/19 09:00 07/02/19 08:52 Aspirin Chewable PO 81 mg DAILY REYES Administration Atorvastatin Calcium 40 mg 06/30/19 21:00 07/01/19 21:36 Lipitor PO 40 mg HS REYES Administration Benzonatate 100 mg 06/30/19 15:00 07/02/19 08:49 Tessalon PO 100 mg TID REYES Administration Bupropion HCl 150 mg 07/01/19 09:00 07/01/19 09:36 Wellbutrin Sr PO 150 mg DAILY REYES Administration Diphenhydramine HCl 50 mg 07/01/19 21:00 07/01/19 20:16 Benadryl PO 50 mg HS REYES Administration Docusate Sodium 100 mg 06/30/19 21:00 07/01/19 20:16 Colace PO 100 mg HS REYES Administration Ezetimibe 10 mg 06/30/19 13:45 06/30/19 16:24 Zetia PO Not Given Q2D REYES Enoxaparin Sodium 40 mg 07/01/19 09:00 07/02/19 08:51 Lovenox SC 40 mg 0900 REYES Administration Famotidine 20 mg 06/30/19 21:00 07/02/19 08:51 Pepcid PO 20 mg BID REYES Administration Folic Acid 1 mg 07/01/19 09:00 07/02/19 08:52 Folvite PO 1 mg DAILY REYES Administration Guaifenesin 1,200 mg 06/30/19 21:00 07/02/19 08:52 Mucinex PO 1,200 mg Q12HR REYES Administration Hydroxyurea 1,000 mg 07/01/19 09:00 07/01/19 08:38 Hydrea PO 1,000 mg Q2DAYS REYES Administration Metoprolol Succinate 25 mg 07/01/19 09:00 07/02/19 08:42 Toprol Xl PO 25 mg DAILY REYES Administration Mometasone Furoate/Formoterol Fumar 2 puff 07/01/19 07:00 07/02/19 07:23 Dulera 200 Mcg/5 Mcg Inhaler INH 2 puff DAILY-RT REYES Administration Pregabalin 200 mg 06/30/19 21:00 07/01/19 20:16 Lyrica PO 200 mg HS REYES Administration - Exam General Appearance: awake alert Eye: anicteric sclera ENT: normocephalic atraumatic Neck: supple Heart: RRR Respiratory - other findings: fair air entry with fine crackles both lung campos Gastrointestinal: non-distended, normal bowel sounds Extremities: no cyanosis, no edema Neurological: cranial nerve grossly intact, no focal deficits Hosp A/P (1) Severe sepsis Code(s): A41.9 - SEPSIS, UNSPECIFIED ORGANISM; R65.20 - SEVERE SEPSIS WITHOUT SEPTIC SHOCK Status: Acute (2) Bronchopneumonia Code(s): J18.0 - BRONCHOPNEUMONIA, UNSPECIFIED ORGANISM Status: Acute (3) Metabolic acidosis Code(s): E87.2 - ACIDOSIS Status: Acute (4) Elevated troponin Code(s): R74.8 - ABNORMAL LEVELS OF OTHER SERUM ENZYMES Status: Acute (5) Pulmonary fibrosis Code(s): J84.10 - PULMONARY FIBROSIS, UNSPECIFIED Status: Acute (6) COPD (chronic obstructive pulmonary disease) Status: Chronic (7) Hypotension Status: Chronic Qualifiers: (8) Moderate mitral regurgitation Code(s): I34.0 - NONRHEUMATIC MITRAL (VALVE) INSUFFICIENCY Status: Chronic (9) BREONNA (acute kidney injury) Code(s): N17.9 - ACUTE KIDNEY FAILURE, UNSPECIFIED Status: Resolved (10) Acute on chronic respiratory failure Code(s): J96.20 - ACUTE AND CHR RESP FAILURE, UNSP W HYPOXIA OR HYPERCAPNIA Status: Acute (11) Acute on chronic anemia Code(s): D64.9 - ANEMIA, UNSPECIFIED Status: Acute - Plan Continue broad spectrum antibiotics, bronchodilators, oxygen and steroid. Add vaoncomycin. DC IVF. Await cultures. Oxygen supplementation as needed Follow renal function and CBC
[2019-07-02] MEDS ORDERED: Vancomycin HCl 1 GM in Premix Bag 1 BAG IVPB SCH (14:00)
[2019-07-02] MEDS: Sodium Bicarbonate Tab 325 MG TAB PO SCH ×2 (14:32→20:22)
[2019-07-02] MEDS: Ezetimibe 10 MG TAB PO SCH (14:38)
[2019-07-02] MEDS: Pregabalin 50 MG CAP PO SCH (20:24)
[2019-07-02] MEDS: Acetaminophen 500 MG TAB PO SCH (20:25)
[2019-07-02] MEDS: Atorvastatin Calcium 40 MG TAB PO SCH (20:27)
[2019-07-02] MEDS: Docusate 100 MG CAP PO SCH (20:27)
[2019-07-02] MEDS: Cefdinir 300 MG CAP PO SCH (20:27)
[2019-07-02] MEDS: diphenhydrAMINE 25 MG CAP PO SCH (20:28)
[2019-07-03 06:22] LABS: Hemoglobin 8.9 g/dL (14.0-18.0); Mean Corpuscular HGB CONC 31.8 g/dL (32.0-36.0); Mean Platelet Volume 8.7 fL (7.4-10.4); Platelet Count 628 thou/uL (130-400); RBC Distribution Width 19.9 % (11.5-14.5); Red Blood Cell (RBC) Count 2.28 mill/uL (4.70-6.10); White Blood Cell (WBC) Count 14.2 thou/uL (4.8-10.8)
[2019-07-03 06:39] LABS: Albumin 2.7 g/dL (3.4-4.8); Anion Gap 10 mmol/L (10-20); BUN (Urea Nitrogen) 26 mg/dL (8.4-25.7); BUN/Creatinine Ratio 26.26; Calc. Creatinine Clearance 69 mL/min (70-130); Calcium 8.9 mg/dL (7.8-10.44); Carbon Dioxide 22 mmol/L (23-31); Chloride 109 mmol/L (98-107); Estimated GFR-MDRD 73; Glucose 82 mg/dL (83-110); Phosphorus 2.6 mg/dL (2.3-4.7); Sodium 137 mmol/L (136-145)
[2019-07-03] MEDS: Mometasone/Formoterol 120 PUFF INHALER INH SCH (08:27)
--- NOTE | 2019-07-03 09:12 | PRG ---
DATE OF SERVICE: 07/03/2019 SUBJECTIVE: An 78-year-old gentleman this morning, he is slightly more encephalopathic. OBJECTIVE: VITAL SIGNS: His saturations on high-flow were in the 86, pulse 110, temperature 99, blood pressure 103/68. CHEST: Bilateral rhonchi and crackles. CARDIAC: Sinus tach. ABDOMEN: Soft. IMPRESSION: 1. End-stage pulmonary fibrosis. Doubt significant pneumonia. 2. He is a DNR. We will call palliative care. 3. . 4. Pulmonary fibrosis, comfort care. Morphine, Ativan. 5. Discussed with his at length. Job ID: [id number]
[2019-07-03] MEDS: Lorazepam 2 MG/ML VIAL SLOW IVP PRN ×3 (09:18→18:47)
[2019-07-03] MEDS: Famotidine 20 MG TAB PO SCH (09:28)
[2019-07-03] MEDS: Benzonatate 100 MG CAP PO SCH ×3 (09:28→21:23)
[2019-07-03] MEDS: Bupropion 150 MG SR TAB PO SCH (09:28)
[2019-07-03] MEDS: Cefdinir 300 MG CAP PO SCH ×2 (09:28→21:24)
[2019-07-03] MEDS: Aspirin Chewable 81 MG TAB PO SCH (09:28)
[2019-07-03] MEDS: guaiFENesin ER 600 MG TAB PO SCH ×2 (09:28→21:23)
[2019-07-03] MEDS: Enoxaparin Sodium 40 MG/0.4 ML SYRINGE SC SCH (09:28)
[2019-07-03] MEDS: Folic Acid 1 MG TAB PO SCH (09:28)
[2019-07-03] MEDS: predniSONE 20 MG TAB PO SCH (09:28)
[2019-07-03] MEDS: Sodium Bicarbonate Tab 325 MG TAB PO SCH ×3 (09:29→21:22)
--- NOTE | 2019-07-03 10:02 | PDOC.HOSPP ---
- Subjective Encounter Date: 07/03/19 Encounter Time: 09:58 Subjective: 78 y/o male with chronic respiratory failure 2/2 ILD on home 02, CAD, atrial flutter and others admitted due to worsening productive cough, fever associated with weakness and poor oral intake. Was hypotensive on admission requiring fluid resuscitation. Respiratory status worsened associated with mental status change and was made comfort care as he is deemed to have end stage pulmonary fibrosis. - Objective Vital Signs & Weight: Vital Signs (12 hours) Temp Pulse Resp BP BP Pulse Ox 07/03/19 08:40 90 L 07/03/19 08:31 110 H 24 H 86 L 07/03/19 08:27 110 H 20 86 L 07/03/19 08:09 99.8 F H 108 H 24 H 103/68 90 L 07/03/19 04:00 98.2 F 91 21 H 112/71 90 L 07/03/19 02:31 91 24 H 91 L 07/03/19 00:00 98.4 F 90 17 111/67 91 L 07/02/19 22:37 91 24 H 94 L Weight Weight 181 lb 3 oz I&O: 07/02/19 07/03/19 07/04/19 06:59 06:59 06:59 Intake Total 3090 Output Total 800 Balance 2290 Result Diagrams: 07/03/19 06:03 07/03/19 06:03 Hospitalist ROS - Medication Medications: Active Medications Generic Name Dose Route Start Last Admin Trade Name Freq PRN Reason Stop Dose Admin Acetaminophen 650 mg 06/30/19 13:42 07/02/19 08:51 Tylenol PO 650 mg Q4H PRN Administration Headache/Fever/Mild Pain (1-3) Albuterol/Ipratropium 3 ml 07/01/19 22:30 07/03/19 08:31 Duoneb NEB 3 ml [id number] REYES Administration Benzonatate 100 mg 06/30/19 15:00 07/03/19 09:28 Tessalon PO Not Given TID REYES Cefdinir 300 mg 07/02/19 21:00 07/03/19 09:28 Omnicef PO Not Given BID REYES Docusate Sodium 100 mg 06/30/19 21:00 07/02/19 20:27 Colace PO 100 mg HS REYES Administration Ezetimibe 10 mg 06/30/19 13:45 07/02/19 14:38 Zetia PO 10 mg Q2D REYES Administration Guaifenesin 1,200 mg 06/30/19 21:00 07/03/19 09:28 Mucinex PO Not Given Q12HR RYEES Lorazepam 1 mg 07/03/19 08:40 07/03/19 09:18 Ativan SLOW IVP 1 mg Q4H PRN Administration Anxiety/Agitation Mometasone Furoate/Formoterol Fumar 2 puff 07/01/19 07:00 07/03/19 08:27 Dulera 200 Mcg/5 Mcg Inhaler INH 2 puff DAILY-RT REYES Administration Prednisone 40 mg 07/03/19 08:00 07/03/19 09:28 Prednisone PO Not Given QAM-WM REYES Pregabalin 200 mg 06/30/19 21:00 07/02/19 20:24 Lyrica PO 200 mg HS REYES Administration Sodium Bicarbonate 650 mg 07/02/19 15:00 07/03/19 09:29 Bicarbonate, Sodium PO Not Given TID REYES Sodium Chloride 10 ml 07/03/19 09:00 07/03/19 09:19 Flush - Normal Saline IVF 10 ml Q12HR REYES Administration - Exam General - other findings: somnolent ENT: normocephalic atraumatic Heart: RRR Heart - other findings: tachycardic Respiratory: no ronchi Respiratory - other findings: fair air entry with scattered crackles both lungs. Extremities: no cyanosis, no edema Neurological: cranial nerve grossly intact Neurological - other findings: somnolent Hosp A/P (1) Pulmonary fibrosis Code(s): J84.10 - PULMONARY FIBROSIS, UNSPECIFIED Status: Acute (2) Acute on chronic respiratory failure Code(s): J96.20 - ACUTE AND CHR RESP FAILURE, UNSP W HYPOXIA OR HYPERCAPNIA Status: Acute (3) Severe sepsis Code(s): A41.9 - SEPSIS, UNSPECIFIED ORGANISM; R65.20 - SEVERE SEPSIS WITHOUT SEPTIC SHOCK Status: Acute (4) Bronchopneumonia Code(s): J18.0 - BRONCHOPNEUMONIA, UNSPECIFIED ORGANISM Status: Acute (5) Metabolic acidosis Code(s): E87.2 - ACIDOSIS Status: Acute (6) Elevated troponin Code(s): R74.8 - ABNORMAL LEVELS OF OTHER SERUM ENZYMES Status: Acute (7) COPD (chronic obstructive pulmonary disease) Status: Chronic (8) Hypotension Status: Chronic Qualifiers: (9) Moderate mitral regurgitation Code(s): I34.0 - NONRHEUMATIC MITRAL (VALVE) INSUFFICIENCY Status: Chronic (10) Acute on chronic anemia Code(s): D64.9 - ANEMIA, UNSPECIFIED Status: Acute - Plan Now on comfort care Continue oxygen, morphine, ativan and bronchodilators for comfort. Palliative care following.
[2019-07-03] MEDS: Morphine 4 MG/ML VIAL SLOW IVP PRN (21:11)
[2019-07-03] MEDS: Docusate 100 MG CAP PO SCH (21:23)
[2019-07-03] MEDS: Pregabalin 50 MG CAP PO SCH (21:24)
[2019-07-04] MEDS: Lorazepam 2 MG/ML VIAL SLOW IVP PRN ×4 (01:36→23:07)
[2019-07-04] MEDS: Morphine 4 MG/ML VIAL SLOW IVP PRN ×4 (03:59→17:26)
[2019-07-04] MEDS: Mometasone/Formoterol 120 PUFF INHALER INH SCH (06:58)
[2019-07-04] MEDS ORDERED: Lorazepam 2 MG/ML VIAL SLOW IVP PRN (08:16)
[2019-07-04] MEDS: predniSONE 20 MG TAB PO SCH (08:17)
[2019-07-04] MEDS: guaiFENesin ER 600 MG TAB PO SCH (08:19)
[2019-07-04] MEDS: Cefdinir 300 MG CAP PO SCH (08:19)
[2019-07-04] MEDS: Benzonatate 100 MG CAP PO SCH (08:19)
[2019-07-04] MEDS: Sodium Bicarbonate Tab 325 MG TAB PO SCH (08:20)
--- NOTE | 2019-07-04 10:58 | PDOC.HOSPP ---
- Subjective Encounter Date: 07/04/19 Encounter Time: 10:57 Subjective: 78 y/o male with chronic respiratory failure 2/2 ILD on home 02, CAD, atrial flutter and others admitted due to worsening productive cough, fever associated with weakness and poor oral intake. Was hypotensive on admission requiring fluid resuscitation. Currently on comfort/hospice care for end stage pulmonary fibrosis. Was agitated and restless last night which improved with ativan. - Objective Vital Signs & Weight: Vital Signs (12 hours) Temp Pulse Resp BP Pulse Ox 07/04/19 08:00 94 L 07/04/19 07:49 98.0 F 113 H 28 H 128/81 94 L 07/04/19 06:51 114 H 28 H 93 L 07/04/19 02:45 112 H 26 H 94 L 07/04/19 01:30 110 H 32 H 110/75 93 L 07/03/19 23:04 105 H 24 H 93 L Weight Weight 181 lb 3 oz I&O: 07/03/19 07/04/19 07/05/19 06:59 06:59 06:59 Intake Total 40 Output Total 600 Balance -560 Result Diagrams: 07/03/19 06:03 07/03/19 06:03 Hospitalist ROS - Medication Medications: Active Medications Generic Name Dose Route Start Last Admin Trade Name Freq PRN Reason Stop Dose Admin Acetaminophen 650 mg 06/30/19 13:42 07/02/19 08:51 Tylenol PO 650 mg Q4H PRN Administration Headache/Fever/Mild Pain (1-3) Benzonatate 100 mg 06/30/19 15:00 07/04/19 08:19 Tessalon PO Not Given TID REYES Cefdinir 300 mg 07/02/19 21:00 07/04/19 08:19 Omnicef PO Not Given BID REYES Docusate Sodium 100 mg 06/30/19 21:00 07/03/19 21:23 Colace PO Not Given HS REYES Ezetimibe 10 mg 06/30/19 13:45 07/02/19 14:38 Zetia PO 10 mg Q2D REYES Administration Guaifenesin 1,200 mg 06/30/19 21:00 07/04/19 08:19 Mucinex PO Not Given Q12HR REYES Morphine Sulfate 4 mg 07/04/19 08:16 07/04/19 09:53 Morphine SLOW IVP 4 mg Q1H PRN Administration Congestion Prednisone 40 mg 07/03/19 08:00 07/04/19 08:17 Prednisone PO Not Given QAM-WM REYES Pregabalin 200 mg 06/30/19 21:00 07/03/19 21:24 Lyrica PO Not Given HS REYES Sodium Bicarbonate 650 mg 07/02/19 15:00 07/04/19 08:20 Bicarbonate, Sodium PO Not Given TID [facility] Sodium Chloride 10 ml 07/03/19 09:00 07/04/19 08:20 Flush - Normal Saline IVF 10 ml Q12HR REYES Administration - Exam General - other findings: somnolent. No distress ENT: normocephalic atraumatic Heart: RRR Heart - other findings: tachycardic Extremities: no edema Neurological - other findings: somnolent Hosp A/P (1) Pulmonary fibrosis Code(s): J84.10 - PULMONARY FIBROSIS, UNSPECIFIED Status: Acute (2) Acute on chronic respiratory failure Code(s): J96.20 - ACUTE AND CHR RESP FAILURE, UNSP W HYPOXIA OR HYPERCAPNIA Status: Acute (3) Severe sepsis Code(s): A41.9 - SEPSIS, UNSPECIFIED ORGANISM; R65.20 - SEVERE SEPSIS WITHOUT SEPTIC SHOCK Status: Acute (4) Bronchopneumonia Code(s): J18.0 - BRONCHOPNEUMONIA, UNSPECIFIED ORGANISM Status: Acute (5) Metabolic acidosis Code(s): E87.2 - ACIDOSIS Status: Acute (6) Elevated troponin Code(s): R74.8 - ABNORMAL LEVELS OF OTHER SERUM ENZYMES Status: Acute (7) COPD (chronic obstructive pulmonary disease) Status: Chronic (8) Hypotension Status: Chronic Qualifiers: (9) Moderate mitral regurgitation Code(s): I34.0 - NONRHEUMATIC MITRAL (VALVE) INSUFFICIENCY Status: Chronic (10) Acute on chronic anemia Code(s): D64.9 - ANEMIA, UNSPECIFIED Status: Acute - Plan Increase morphine to 4 mg q1h prn for agitation and comfort. Also increase ativan to 1 mg q1h prn for agitation and comfort. DC other medications.
--- NOTE | 2019-07-04 18:19 | PRG ---
DATE OF SERVICE: 07/04/2019 SERVICE: Pulmonary Medicine. INTERVAL HISTORY: The patient is doing poorly from respiratory standpoint. He is on high-flow nasal cannula. He cannot tolerate any weaning. He denies any shortness of breath currently. I woke him up from a nap. He is awake and appropriate. He said he was not in any distress. He went back to sleep. PHYSICAL EXAMINATION: VITAL SIGNS: Afebrile, pulse 113, blood pressure 128/81, respirations 28, saturation 94% on high-flow nasal cannula. GENERAL: The patient is somnolent but wakes up easily. Without stimulation, he will drift off to sleep in greater than 10 seconds. HEENT: Normocephalic and atraumatic. Sclerae white. Conjunctivae pink. Oral mucosa is moist without lesions. LUNGS: Extensive crackling is present. No prolonged expiratory phase or wheezing is appreciated. HEART: Normal rate and regular. ABDOMEN: Soft, nontender, nondistended. Bowel sounds are positive. MUSCULOSKELETAL: No cyanosis or clubbing. No pitting in the bilateral lower extremities. NEUROLOGIC: Grossly nonfocal. ASSESSMENT: 1. Acute on chronic hypoxic respiratory failure. 2. Idiopathic pulmonary fibrosis with acute exacerbation. DISCUSSION AND PLAN: When the patient's family is ready, we are going to get him comfortable with medications if necessary, and remove his supplemental oxygen. will be expected within the next week, but he is likely to pass away within 48 hours given the amount of oxygen he is requiring. The patient's family is aware that this could take more than a couple of minutes. Pulmonary/Critical Care will continue to follow along so long as the patient is still here. Job ID: [id number]
[2019-07-04] MEDS: Morphine 2 MG/ML SYRINGE SLOW IVP PRN ×2 (20:39→23:07)
[2019-07-04 21:41] VITALS: BP 110/69; TEMP 98
[2019-07-05] MEDS: Morphine 2 MG/ML SYRINGE SLOW IVP PRN ×2 (00:12→01:13)
[2019-07-05] MEDS: Lorazepam 2 MG/ML VIAL SLOW IVP PRN (01:34)
--- NOTE | 2019-07-06 14:29 | DIS ---
DATE OF ADMISSION: 06/30/2019 DATE OF DISCHARGE: 07/05/2019 PRIMARY CARE PHYSICIAN: Andriy Robles MD DISCHARGE DIAGNOSES: 1. Chronic respiratory failure. 2. Severe sepsis. 3. Bilateral bronchopneumonia. 4. End-stage pulmonary fibrosis. 5. Metabolic acidosis. 6. Chronic obstructive pulmonary disease with acute exacerbation. 7. Hypotension. 8. Elevated troponin. 9. Moderate mitral regurgitation. 10. Acute on chronic anemia. 11. Acute kidney injury. CONSULTS: Pulmonary. HOSPITAL COURSE: An 78-year-old male with known history of chronic respiratory failure secondary to interstitial lung disease, on home oxygen; coronary artery disease; atrial flutter; and others; admitted due to worsening productive cough, fever associated with generalized weakness and poor oral intake. The patient was hypotensive on admission, which improved with fluid resuscitation. He was started on broad-spectrum antibiotic therapy as well as bronchodilators and steroids. However, he continued to deteriorate. Following further discussion with the patient and spouse about the advanced nature of interstitial lung disease, the patient was made comfort measures only. He later passed on July 05, 2019, at 0229 hours. Job ID: [id number]
--- NOTE | 2019-07-07 03:27 | PQF ---
COURTNEY ANDREA OBI, CHIZOBA C [id number] CLINICAL DOCUMENTATION CLARIFICATION FORM: POST DISCHARGE Addendum to original discharge summary date: ____ Late entry note date: __ DATE: 07/07/19 ATTN: Raymond Rolle Obi Please exercise your independent, professional judgment in responding to the clarification form. Clinical indicators are provided on the bottom of this form for your review Can you please further specify the diagnosis based on the clinical below? Please check appropriate box(s): [ x ] Acute Renal Failure (ARF) / Acute Kidney Injury (BREONNA) [ ] Acute Tubular Necrosis (ATN) [ ] Acute Cortical Necrosis [ ] Acute Medullary Necrosis [ ] Other diagnosis please specify [ ] Unable to determine In addition, please specify: Present on Admission (POA): [ x ] Yes [ ] No [ ] Unable to determine National Kidney Foundation Guidelines for CKD Staging Stage I Kidney damage with normal or increased GFRGFR > 90 Stage IIKidney damage with mildly decreased GFRGFR 60-89 Stage III Kidney damage with moderately decreased GFRGFR 30-59 Stage IVKidney damage with severely decreased GFRGFR 16-29 Stage VKidney failureGFR<15 ESRDEnd Stage Renal DiseaseOn dialysis Acute Renal Failure/Acute Kidney Failure defined as: Increases in SCr by (>) 0.3 mg/dl within 48 hours OR- Increases in SCr by (>) 1.5 times baseline, known or presumed to have occurred within the prior 7 days OR- Urine volume < 0.5 ml/kg/hour for 6 hours (KDIGO supplement 2012 for RIFLE/HERNAN criteria) For continuity of documentation, please document condition throughout progress notes and discharge summary. Thank You. CLINICAL INDICATORS - SIGNS / SYMPTOMS / LABS ED Notes 06/30 "patient has had decreased appetite,urine output changes x 1-2 weeks" ED Notes 06/30 "reports urine output changes" Consult 06/30 "significant nausea and vomiting" Consult 06/30 "marked weakness" PN 07/01 "weakness and poor oral intake" PN 07/01 "metabolic acidosis" PN 07/02 "appears to be somewhat more confused" Labs BUN: 07/01=21 07/03=26 Labs Creatine: 07/01=0.84 07/03=0.99 Labs GFR: 07/01=88 07/03=73 RISK FACTORS ED Notes 06/30-78 years old male ED Notes 06/30-CHF ED Notes 06/30-Anemia ED Notes 06/30-Thrombocytopenia PN 07/01-Severe sepsis PN 07/01-BREONNA TREATMENTS: HP 06/30-IV bolus Collected 07/01-Laboratory monitoring MAR 07/02-Sodium Bicarbonate 650mg IV (This form is maintained as a part of the permanent medical record) 2014 [employer] All Rights Reserved Andrea [email or web address] [not provided] [email or web address]
== END 2019-07-05 02:29 | disposition expired | DRG 871 ==
LOC: ERS 11:06 → T4-B 15:03
PROVIDERS: ADMIT Internal Medicine; ATTEND Internal Medicine
DX: A41.9 Sepsis, unspecified organism (principal); J18.0 Bronchopneumonia, unspecified organism; J96.20 Acute and chronic respiratory failure, unspecified whether with hypoxia or hypercapnia; J44.0 Chronic obstructive pulmonary disease with (acute) lower respiratory infection; I48.92 Unspecified atrial flutter; E87.2 Acidosis; N17.9 Acute kidney failure, unspecified; J84.9 Interstitial pulmonary disease, unspecified; J44.1 Chronic obstructive pulmonary disease with (acute) exacerbation; I50.32 Chronic diastolic (congestive) heart failure; G93.40 Encephalopathy, unspecified; J84.10 Pulmonary fibrosis, unspecified; R65.20 Severe sepsis without septic shock; Z66 Do not resuscitate; Z51.5 Encounter for palliative care; I25.10 Atherosclerotic heart disease of native coronary artery without angina pectoris; D69.6 Thrombocytopenia, unspecified; E78.00 Pure hypercholesterolemia, unspecified; M48.00 Spinal stenosis, site unspecified; F03.90 Unspecified dementia, unspecified severity, without behavioral disturbance, psychotic disturbance, mood disturbance, and anxiety; I34.0 Nonrheumatic mitral (valve) insufficiency; I95.9 Hypotension, unspecified; I45.10 Unspecified right bundle-branch block; F32.9 Major depressive disorder, single episode, unspecified; F41.9 Anxiety disorder, unspecified; I11.0 Hypertensive heart disease with heart failure; D64.9 Anemia, unspecified; Z96.652 Presence of left artificial knee joint; Z93.3 Colostomy status; Z95.5 Presence of coronary angioplasty implant and graft; I25.2 Old myocardial infarction; Z87.891 Personal history of nicotine dependence; Z79.82 Long term (current) use of aspirin; Z99.81 Dependence on supplemental oxygen; S82.001D Unspecified fracture of right patella, subsequent encounter for closed fracture with routine healing; Z90.49 Acquired absence of other specified parts of digestive tract; Z79.51 Long term (current) use of inhaled steroids; Z79.899 Other long term (current) drug therapy
CPT/HCPCS: 36415; 51701; 71045; 71275; 80048; 80053; 80069; 81003; 81015; 83605; 83735; 83880; 84100; 84484; 85025; 85027; 87040; 87070; 87205; 87804; 93005; 94640; 94760; 96361; 96365; 96375; J0456; J0692; J0696; J1650; J1956; J2060; J2270; J2920; J2930; J3370; J3490; J7620; Q9966